=== PATIENT | female | born 1940 | race Caucasian/White ===

== ENCOUNTER → 2021-01-05 10:19 | Outpatient (CLI) | payer MEDICARE, BC, SELFPAY ==
[2021-01-05 10:31] LABS: Microscopic, Urine URINE MICROSCOPIC (MICROSCOPIC)
[2021-01-05 11:08] LABS: Appearance,Urine SL CLOUDY (Clear); Bilirubin,Urine Negative (Negative); Blood, Urine Negative (Negative); Color,Urine YELLOW (Yellow); Glucose,Urine (UA) Negative (Negative); Ketones,Urine Negative (Negative); Leukocyte Esterase,Urine 1+ (Negative); Nitrate,Urine POSITIVE (Negative); PH,Urine 5.5 (5.0-8.5); Protein,Urine Negative (Negative); Specific Gravity, Urine >= 1.030 (1.005-1.030); Urobilinogen,Urine 0.2 EU/dl (0.2)
[2021-01-05 11:22] LABS: WBC,Urine 50-100 #/hpf (0-3)
[2021-01-05 11:23] LABS: Bacteria,Urine 4+ /lpf
== END ==
PROVIDERS: PCP Family Medicine; Visit Provider Family Medicine
DX: R30.0 Dysuria (principal)
CPT/HCPCS: 81001; 87086; 87088; 87186

== ENCOUNTER 2021-01-30 20:24 | Emergency (ER) | payer MEDICARE, BC, SELFPAY ==
[2021-01-30 20:25] VITALS: BP 165/69; PULSE 63; RESP 18; O2SAT 92; BMI 24.7
--- NOTE | 2021-01-30 20:40 | HMH.EDGENADL ---
ED Disposition Clinical Impression: Peptic ulcer disease Headache Qualifiers: Headache type: unspecified Headache chronicity pattern: acute headache Intractability: not intractable Qualified Code(s): R51.9 - Headache, unspecified Disposition: Home, Self-Care Condition on Discharge: Good Instructions: Nausea and Vomiting-Adult Additional Instructions: Zofran as prescribed for nausea and vomiting. Take omeprazole as prescribed as this may help with pain associated with your peptic ulcer disease. Zofran and Omeprazole sent electronically to [email or web address]. Follow a bland diet. Avoid any NSAIDs and EtOH. A good decongestant you to try to be Coricidin which is [id number]. You can also try nasal Flonase over the next several days which may help. Drink plenty of clear fluids. Please follow-up with your doctor within several days for recheck. If any recurrent headache, epigastric pain, intractable nausea/vomiting, fever/chills, generalized malaise, change in quality/character of pain, or other new issues please report back to our emergency department immediately. Prescriptions: Omeprazole [Omeprazole 40mg Capsule] 40 mg PO AC #14 cap Prescription Printed Omeprazole [Omeprazole 40mg Capsule] 40 mg PO AC #14 cap Transmission Status: Pending to [id number] Ondansetron [Zofran 4mg ODT] 4 mg PO BIDP PRN #12 tab PRN Reason: Vomiting Transmission Status: Pending to [id number] Referrals: Zhen Urbina MD [Primary Care Provider] - - Critical Care Critical Care Time: No Attestation: On 01/30/21, the high probability of a clinically significant, sudden or life threatening deterioration of the following system(s) required my full and direct attention, intervention and personal management. The time I documented below is in addition to time spent performing reported procedures but includes the following listed in this critical care notation. Medical Decision Making - Medical Records Medical records reviewed: Yes: I reviewed the patient's medical records. - [place] Inquiry Pt receiving controlled substance: No Vital Signs: 01/30/21 20:25 Pulse Rate [Left Radial] 63 Respiratory Rate 18 Blood Pressure [Right Arm] 165/69 H Blood Pressure Mean [Right Arm] 101 Blood Pressure Source [Right Arm] Automatic Cuff Blood Pressure Position [Right Arm] Sitting 02 Sat by Pulse Oximetry 92 L Oxygen Delivery Method Room Air - Lab Data Lab Results 01/30/21 20:58: WBC 4.3 L, RBC 4.70, Hgb 14.2, Hct 42.6, MCV 90.6, MCH 30.1, MCHC 33.2, RDW 14.1, Plt Count 239, MPV 7.7, Neut % (Auto) 75.3, Lymph % (Auto) 19.5, [place] % (Auto) 4.2, Eos % (Auto) 0.8, Baso % (Auto) 0.1, Neut # (Auto) 3.2, Lymph # (Auto) 0.8, [place] # (Auto) 0.2, Eos # (Auto) 0.0, Baso # (Auto) 0.0 01/30/21 20:58: Sodium 138, Potassium 4.0, Chloride 107, Carbon Dioxide 23, Anion Gap 12.0, BUN 26 H, Creatinine 0.70, Estimated Creat Clear 43, Estimated GFR 81, Est GFR ( Amer) 97, Glucose 118 H, Calcium 8.9, Total Bilirubin 0.5, AST 44 H, ALT 26, Alkaline Phosphatase 105, Total Protein 7.9, Albumin 4.5, Globulin 3.4 H, Albumin/Globulin Ratio 1.3, Amylase 74, Lipase 21 L 01/30/21 20:58: Troponin I < 0.01 01/30/21 22:14: Lactate 1.7 Result diagrams: 01/30/21 20:58 01/30/21 20:58 Orders (Tests/Meds): ED MEDICATIONS Generic Name Dose Route Start Last Admin Trade Name Alexandra PRN Reason Stop Dose Admin Sodium Chloride 1,000 mls @ 999 mls/hr 01/30/21 21:15 01/30/21 21:08 Sod Chlor 0.9% 1000ml Bag IV 01/30/21 22:15 999 mls/hr .Q1H1M PALOMO Administration Lactated Ringer's 500 mls @ 999 mls/hr 01/30/21 21:15 01/30/21 21:17 Lactated Ringer's 1000 Ml Bag IV 01/30/21 21:45 999 mls/hr .Q31M PALOMO Administration Sodium Chloride 10 ml 01/31/21 00:21 01/31/21 00:24 Sodium Chloride 0.9% 10ml Vial IV 03/02/21 00:20 10 ml NEEDED PRN Administration dilute protonix Discontinued Medications Generic Name Dose
[2021-01-30 21:00] VITALS: BP 158/59; PULSE 54; O2SAT 99
--- NOTE | 2021-01-30 21:09 | CT_ITS ---
PROCEDURE: CT HEAD/BRAIN WO CON CLINICAL INDICATION: Headache COMPARISON: No exams were available for comparison TECHNIQUE: Axial images obtained. All CT scans at the facility use one or more dose reduction, viz: automated exposure control, ma/kV adjustment per patient size (including targeted exams where dose is matched to indication, i.e. head), or iterative reconstruction technique. FINDINGS: Motion artifact obscures fine detail. The patient refused to repeat the exam. No midline shift or obvious intracranial hemorrhage evident. There is generalized atrophy with hypoattenuation of the periventricular white matter consistent with microangiopathic changes.. No mastoid effusion or sinus air-fluid level IMPRESSION: Limited exam secondary to motion No obvious acute finding Dictated by: James Patel MD 01/31/2021 08:41 James Patel MD in [facility] 01/31/2021 08:41
[2021-01-30 21:16] LABS: Basophils % 0.1 % (0.1-2.0); Eosinophils % 0.8 % (0.1-12.0); Hematocrit 42.6 % (37.0-47.0); Hemoglobin 14.2 g/dL (12.2-16.2); Lymphocytes # 0.8 K/mm3 (0.7-4.5); Lymphocytes % 19.5 % (10-50); Mean Corpuscular HGB Conc 33.2 g/dL (31.8-35.4); Mean Corpuscular Hemoglobin 30.1 pg (27.0-31.2); Mean Corpuscular Volume 90.6 fl (81-99); Mean Platelet Volume 7.7 fl (7.4-10.4); Monocytes # 0.2 K/mm3 (0.1-1.0); Monocytes % 4.2 % (1.7-9.3); Neutrophils # 3.2 K/mm3 (1.8-7.8); Neutrophils % 75.3 % (37.0-80.0); Platelet Count 239 K/mm3 (142-424); Red Cell Distribution Width 14.1 % (11.5-17.5); White Blood Count 4.3 K/mm3 (4.8-10.8)
[2021-01-30 21:18] LABS: Chloride 107 mmol/L (98-107); Sodium 138 mmol/L (136-145)
[2021-01-30 21:21] LABS: Alanine Aminotransferase 26 U/L (12-78); Alkaline Phosphatase 105 U/L (38-126); Amylase 74 U/L (30-110); Aspartate Amino Transferase 44 U/L (14-36); Bilirubin,Total 0.5 mg/dl (0.2-1.3); Blood Urea Nitrogen 26 mg/dl (7-17); Calcium 8.9 mg/dl (8.4-10.2); Carbon Dioxide 23 mmol/L (22.0-30.0); Creatinine Clearance Estimated 43 mL/min (50-200); Estimated Glomerular Filt Rate 81 ml/min (>60); GFR (African American) 97 ML/MIN (>60); Glucose 118 mg/dl (74-100); Lipase 21 U/L (23-300)
[2021-01-30 21:22] LABS: Albumin Level 4.5 g/dl (3.5-5.0); Albumin/Globulin Ratio 1.3 (1.1-1.8); Globulin 3.4 g/dL (1.3-3.2); Total Protein,Serum 7.9 g/dl (6.3-8.2)
[2021-01-30 21:30] VITALS: BP 149/59; PULSE 62; O2SAT 96
[2021-01-30 22:00] VITALS: BP 145/77; PULSE 74; O2SAT 96
--- NOTE | 2021-01-30 22:04 | ECG_ITS ---
APPROVED REPORT Exam: Resting ECG HR:69 bpm ECG Measurements Heart Rate 69 AXES WV 128 P 62 QRSd 74 QRS 70 QT 426 T 49 QTc 456 Conclusion Normal sinus rhythm Short WV with pre-excitation pattern - consider WPW variant Abnormal ECG Electronically signed by : Stanley Ibarra, 01/31/2021 08:40:11
[2021-01-30 22:29] LABS: Lactic Acid 1.7 mmol/L (0.7-2.1)
[2021-01-30 22:30] VITALS: BP 137/62; PULSE 80; RESP 18; O2SAT 94
--- NOTE | 2021-01-30 23:02 | PC.NURSE ---
RT reports pt is unable to tolerate laying for CT. Pt is now refusing to complete imaging stating she cant sit still d/t pain. aware.
[2021-01-30 23:30] VITALS: BP 141/75; PULSE 67; O2SAT 94
[2021-01-31] VITALS: BP 149/69; PULSE 66; O2SAT 96
[2021-01-31 00:02] LABS: Troponin I < 0.01 ng/ml (0.00-0.034)
[2021-01-31 00:30] VITALS: BP 143/66; PULSE 63; O2SAT 97
[2021-01-31 01:00] VITALS: BP 139/54; PULSE 63; O2SAT 96
[2021-01-31 01:51] VITALS: BP 137/57; PULSE 96; RESP 18; TEMP 36.6; O2SAT 96
== END 2021-01-31 01:54 | disposition home or self-care (01) ==
PROVIDERS: Emergency Provider Emergency Medicine; PCP Family Medicine
DX: K27.9 Peptic ulcer, site unspecified, unspecified as acute or chronic, without hemorrhage or perforation (principal); R51.9 Headache, unspecified; E78.5 Hyperlipidemia, unspecified; Z79.899 Other long term (current) drug therapy
CPT/HCPCS: 70450; 80053; 82150; 83605; 83690; 84484; 85025; 93005; 96365; 96375; 96376; 99283; J2405; U0003

== ENCOUNTER 2023-05-06 21:21 | Inpatient (IN) | payer MEDICARE, BC, SELFPAY ==
[2023-05-06] VITALS (7 sets, daily range): BP systolic 148–161; BP diastolic 57–66; PULSE 56–72; RESP 14; TEMP 36.8; O2SAT 90–95; BMI 26.5
--- NOTE | 2023-05-06 21:34 | XR_ITS ---
PROCEDURE INFORMATION: Exam: XR Chest Exam date and time: 05/06/2023 10:39 PM Age: 82 years old Clinical indication: Other: Epigastric pain TECHNIQUE: Imaging protocol: Radiologic exam of the chest. Views: 1 view. COMPARISON: CT ABDOMEN PELVIS W CON 06/05/2023 22:36 FINDINGS: Lungs: Right hemidiaphragm elevation with right lower lung atelectasis. Bilateral apical scarring. The suggestion of the left lung base opacity has no correlate on CT images and likely represents a overlapping structures. Pleural spaces: Unremarkable. No pleural effusion. No pneumothorax. Heart/Mediastinum: Unremarkable. No cardiomegaly. Vasculature: Vascular calcifications. Bones/joints: Unremarkable. IMPRESSION: No acute findings.
--- NOTE | 2023-05-06 21:34 | CT_ITS ---
PROCEDURE INFORMATION: Exam: CT Abdomen And Pelvis With Contrast Exam date and time: 05/06/2023 10:36 PM Age: 82 years old Clinical indication: Abdominal pain; Epigastric TECHNIQUE: Imaging protocol: Computed tomography of the abdomen and pelvis with contrast. Radiation optimization: All CT scans at this facility use at least one of these dose optimization techniques: automated exposure control; mA and/or kV adjustment per patient size (includes targeted exams where dose is matched to clinical indication); or iterative reconstruction. Contrast material: ISOVUE; Contrast volume: 75 ml; Contrast route: IV; REPORTING DATA: Count of CT and Cardiac NM exams in prior 12 months: This patient has received 0 known CTs and 0 known cardiac nuclear medicine studies in the 12 months prior to the current study. COMPARISON: No relevant prior studies available. FINDINGS: Lungs: Right hemidiaphragm elevation with right lower lung atelectasis. Mild scarring and atelectasis in the lower lungs. Diaphragm: Small hiatal hernia. Liver: Possible hepatic steatosis. Gallbladder and bile ducts: Gallbladder is absent. Post cholecystectomy ectasia. Pancreas: Normal. No ductal dilation. Spleen: Normal. No splenomegaly. Adrenal glands: Normal. No mass. Kidneys and ureters: Normal. No hydronephrosis. Stomach and bowel: Small bowel wall thickening. Appendix: No evidence of appendicitis. Intraperitoneal space: Unremarkable. No free air. No significant fluid collection. Vasculature: The arteries demonstrate moderate atherosclerotic disease. Lymph nodes: Unremarkable. No enlarged lymph nodes. Urinary bladder: Unremarkable as visualized. Reproductive: Unremarkable as visualized. Bones/joints: Unremarkable. No acute fracture. Soft tissues: Tiny fat containing umbilical hernia. IMPRESSION: Small bowel wall thickening. Please correlate for evidence of enteritis.
--- NOTE | 2023-05-06 21:36 | HMH.EDABDPAI ---
Discharge Plan Disposition Chief Complaint: Abdominal Pain Prescriptions Prescriptions: No Action ondansetron 4 MG tablet,disintegrating 4 mg PO BIDP PRN (Reason: Vomiting) Qty: 12 0RF omeprazole 40 MG capsule,delayed release(DR/EC) 40 mg PO AC Qty: 14 0RF Rx Instructions: Take 1 tablet daily in the mornings omeprazole 40 MG capsule,delayed release(DR/EC) 40 mg PO AC Qty: 14 0RF Rx Instructions: 1 tablet each morning Referrals Follow up/Referrals: Zhen Urbina MD [Primary Care Provider] - See instructions Clinical Impressions Clinical Impression: Enteritis, Aspiration pneumonia of right lower lobe, Hypoxemia Instructions Patient Instructions: DI for Acute Abdominal Pain Discharge ED Provider: Marilin Choudhury Abdominal Pain HPI General Chief Complaint: Abdominal Pain Stated Complaint: nausea, trouble eating, vomiting Time Seen by Provider: 05/06/23 21:26 Mode of Arrival: Ambulatory Source of Information: Relative (Son) History of Present Illness HPI narrative: Patient is a 84-year-old female who is here secondary to severe diffuse abdominal pain. Patient stated she been having abdominal pain for 3 days since Tuesday. She is having intractable nausea vomiting which has been yellow-green. She is also had diarrhea since Tuesday. She has had cold fevers and chills. Patient has no chest pain. Patient's been having watery diarrhea. There is no blood in the emesis there is no blood in the diarrhea. She has not been on recent antibiotic. Patient's son said that she gets constipated and does take MiraLAX every other day. They do not know if she has a bowel obstruction or if she is got an infection in her colon so her son brought her in because she is not even able to keep her ice chips down she is not taking her oral medications either because she is vomiting complaint: abdominal pain Onset (ago): day(s) (3) Consistency: constant Location: diffuse Severity: moderate Severity scale (1-10): 8 Quality: cramping Radiation: none Migration to: no migration Relieving factors: nothing Exacerbating factors: nothing Associated symptoms: nausea, vomiting, diarrhea and chills Related Data Previous Rx's Medication Instructions Recorded omeprazole 40 mg capsule,delayed 40 mg PO AC #14 caps 01/31/21 release omeprazole 40 mg capsule,delayed 40 mg PO AC #14 caps 01/31/21 release ondansetron 4 mg disintegrating 4 mg PO BIDP PRN Vomiting #12 tabs 01/31/21 tablet Allergies Allergy/AdvReac Type Severity Reaction Status Date / Time No Known Allergies Allergy Verified 05/06/23 21:44 [facility] Disclaimer: The information contained in this section may have been updated after the patient was seen, as this information can be updated by other users. Surgical History History of appendectomy History of cholecystectomy History of esophagogastroduodenoscopy (EGD) Social History Smoking Status: Never smoker alcohol intake: never current occupational status: retired Travel in the last 8 weeks: None ROS Obtained: Yes All systems reviewed & no additional complaints except as documented Gastrointestinal Gastrointestingal: Reports abdominal pain, diarrhea, nausea and vomiting Physical Exam General General appearance: alert and in distress Head Head exam: atraumatic, normocephalic and normal inspection Eye Eye exam: Present normal appearance and EOMI; Absent scleral icterus or conjunctival redness ENT ENT exam: Present normal exam, normal oropharynx and mucous membranes dry Neck Neck exam: Present normal inspection, full ROM and trachea midline Chest Chest inspection: Present normal inspection and symmetric chest wall rise Respiratory Respiratory exam: Present normal lung sounds bilaterally Cardiovascular Cardiovascular exam: Present normal rhythm, normal h
[2023-05-06 21:53] LABS: Basophils % 0.3 % (0.1-2.0); Eosinophils % 0.3 % (0.1-12.0); Hematocrit 45.7 % (37.0-47.0); Hemoglobin 14.5 g/dL (12.2-16.2); Lymphocytes # 1.1 K/mm3 (0.7-4.5); Lymphocytes % 16.4 % (10-50); Mean Corpuscular HGB Conc 31.9 g/dL (31.8-35.4); Mean Corpuscular Hemoglobin 29.3 pg (27.0-31.2); Mean Platelet Volume 7.8 fl (7.4-10.4); Monocytes # 0.2 K/mm3 (0.1-1.0); Monocytes % 3.4 % (1.7-9.3); Neutrophils # 5.1 K/mm3 (1.8-7.8); Neutrophils % 79.6 % (37.0-80.0); Platelet Count 249 K/mm3 (142-424); Red Blood Count 4.96 M/mm3 (4.20-5.40); Red Cell Distribution Width 13.6 % (11.5-17.5); White Blood Count 6.4 K/mm3 (4.8-10.8)
[2023-05-06 21:57] LABS: Activated Partial Thrombo Time 25.6 seconds (22.8-30.6); INR 0.95 (0.9-1.1); Prothrombin Time 10.3 seconds (10.1-12.5)
[2023-05-06 22:21] LABS: Alanine Aminotransferase 26 U/L (12-78); Albumin Level 4.4 g/dl (3.5-5.0); Albumin/Globulin Ratio 1.4 (1.1-1.8); Alkaline Phosphatase 97 U/L (38-126); Anion Gap 10.8 mEq/L (5-15); Aspartate Amino Transferase 36 U/L (14-36); Bilirubin,Total 0.6 mg/dl (0.2-1.3); Blood Urea Nitrogen 18 mg/dl (7-17); Calcium 9.3 mg/dl (8.4-10.2); Carbon Dioxide 25 mmol/L (22.0-30.0); Chloride 108 mmol/L (98-107); Creatinine Clearance Estimated 45 mL/min (50-200); Estimated Glomerular Filt Rate 69 ml/min (>60); GFR (African American) 83 ML/MIN (>60); Globulin 3.2 g/dL (1.3-3.2); Glucose 145 mg/dl (74-100); Lipase 54 U/L (23-300); Potassium 3.8 mmoL/L (3.5-5.1); Sodium 140 mmol/L (136-145); Total Protein,Serum 7.6 g/dl (6.3-8.2)
--- NOTE | 2023-05-06 22:33 | PC.NURSE ---
PT GONE TO CT VIA STRETCHER
[2023-05-06 23:52] LABS: ABG Base Excess -4.4 mmol/L (-2.4-2.3); ABG HCO3 21.5 mmhg (22.0-26.0); ABG Oxygen Saturation 90 % (90-100); ABG PCO2 41.7 mmhg (35.0-45.0); ABG PH 7.33 mmol/L (7.35-7.45); ABG PO2 62.7 mmhg (80-100); ABG TCO2 22.8 mmhg (23-27)
[2023-05-06 23:53] LABS: Allen's Test Acceptable; Oxygen 21 %; Source Right Radial
[2023-05-07] VITALS (16 sets, daily range): BP systolic 114–158; BP diastolic 54–76; PULSE 50–80; RESP 16–19; TEMP 36.4–36.8; O2SAT 2–96; BMI 26.3
[2023-05-07 00:36] LABS: Coronavirus 19, PCR Not Detected (NotDetected); Influenza A, PCR Not Detected (NotDetected); Influenza B, PCR Not Detected (NotDetected)
--- NOTE | 2023-05-07 01:09 | PC.NURSE ---
REPORT GIVEN TO BOBY GAYTAN
--- NOTE | 2023-05-07 08:43 | PC.NURSE ---
pt with nausea and mild emesis, informed MD Urbina at bedside, MD to order zofran and put in pt's home meds
--- NOTE | 2023-05-07 08:44 | EXP.HP ---
History of Present Illness *Admission Date: 05/06/23 *Reason for visit:: abdominal pain *History of present illness: The patient is an 82 year old female with a 3 day history of diffuse abdominal pain associated with nausea, vomiting and diarrhea. Emesis has consisted of yellow liquid, no blood. Bowel movements have been brown and watery, no blood. She has had some headache as well. She states she has no sick contacts and did not eat any food out of her usual routine. She has been able to eat anything the past 2 days. Her son brought her to the ER for an evaluation last night. [facility] Disclaimer: The information contained in this section may have been updated after the patient was seen, as this information can be updated by other users. Medical History (Updated 05/07/23 @ 08:52 by Zhen Urbina MD) Allergic rhinitis Anxiety Depression Hyperlipidemia Irritable bowel syndrome with constipation Migraine headache Polyneuropathy Vertigo Vitamin D deficiency Surgical History (Updated 05/07/23 @ 08:50 by Zhen Urbina MD) History of appendectomy History of cholecystectomy History of esophagogastroduodenoscopy (EGD) History of tonsillectomy Family History (Updated 05/07/23 @ 08:51 by Zhen Urbina MD) Cancer Mother Social History (Updated 05/07/23 @ 01:37 by Samia Marquez RN) Smoking Status: Never smoker alcohol intake: never current occupational status: retired Travel in the last 8 weeks: None Review of Systems Constitutional Constitutional: Denies chills and Denies fever(s) Eyes Eyes: Denies blurry vision ENT Ears, Nose, Mouth, and Throat: Denies epistaxis *Cardiovascular Cardiovascular: Denies chest pain *Respiratory Respiratory: Denies cough *Gastrointestinal Gastrointestinal: Reports as per HPI *Genitourinary Genitourinary: Denies dysuria *Musculoskeletal Musculoskeletal: Denies arthralgias Integumentary/Breasts Skin/Breast: Denies rash *Neurologic Neurologic: Denies tremor(s) Meds Home Medications and Allergies Home Medications Medication Instructions Recorded Confirmed Type ondansetron 4 mg disintegrating 4 mg PO BIDP PRN Vomiting #12 tabs 01/31/21 05/07/23 Rx tablet ascorbic acid (vitamin C) 1,000 mg 1,000 mg PO Q12H . 05/07/23 05/07/23 History tablet,extended release (Vitamin C ER) atorvastatin 20 mg tablet 20 mg PO DAILY Cholesterol 05/07/23 05/07/23 History calcium citrate 200 mg 2 tab PO DAILY . 05/07/23 05/07/23 History calcium-vitamin D3 3.125 mcg (125 unit) tablet cholecalciferol (vitamin D3) 50 50 mcg PO DAILY . 05/07/23 05/07/23 History mcg (2,000 unit) tablet (Vitamin D3) clonazepam 0.5 mg tablet 0.5 mg PO DAILY . 05/07/23 05/07/23 History diphenhydramine HCl 25 mg tablet 25 mg PO HS PRN . 05/07/23 05/07/23 History hydroxyzine HCl 25 mg tablet 25 mg PO BID Itching 05/07/23 05/07/23 History loratadine 10 mg tablet 10 mg PO DAILY alllergies 05/07/23 05/07/23 History magnesium 250 mg tablet 250 mg PO DAILY . 05/07/23 05/07/23 History montelukast 10 mg tablet 10 mg PO HS . 05/07/23 05/07/23 History (Singulair) olanzapine 10 mg tablet 10 mg PO HS Depression 05/07/23 05/07/23 History omeprazole 40 mg capsule,delayed 40 mg PO AC . 05/07/23 05/07/23 History release pregabalin 50 mg capsule (Lyrica) 150 mg PO BID nerves 05/07/23 05/07/23 History sertraline 100 mg tablet 100 mg PO DAILY Depression 05/07/23 05/07/23 History valerian root 500 mg capsule 500 mg PO HS PRN Sleep 05/07/23 05/07/23 History New Prescriptions to Start Prescriptions: Allergies Allergy/AdvReac Type Severity Reaction Status Date / Time No Known Allergies Allergy Verified 05/06/23 21:44 Exam Data for Last 24 hours Vital signs and Labs for Last 24 Hours: Temp Pulse Resp BP Pulse Ox O2 Del Method O2 Flow Rate 97.9 F 62 16 114/54 L 94 L Nasal Cannula 2.5 05/07/23 07:51 05/07/23 07:51 05/07/23 07:51 05/07/23 07:51 05/07/23 07:51
--- NOTE | 2023-05-07 11:42 | HMH.PHAINT1 ---
Pharmacy Intervention Comments: MEDICATION RECONCILIATION COMPLETE USING EXTERNAL PHARMACY FILL HISTORY.
[2023-05-07 18:01] LABS: Microscopic, Urine URINE MICROSCOPIC (MICROSCOPIC)
[2023-05-07 18:07] LABS: Appearance,Urine CLEAR (Clear); Bilirubin,Urine Negative (Negative); Blood, Urine 2+ (Negative); Color,Urine DK YELLOW (Yellow); Glucose,Urine (UA) Negative (Negative); Ketones,Urine Negative (Negative); Leukocyte Esterase,Urine TRACE (Negative); Nitrate,Urine POSITIVE (Negative); PH,Urine 5.5 (5.0-8.5); Protein,Urine TRACE (Negative); Specific Gravity, Urine >= 1.030 (1.005-1.030); Urobilinogen,Urine 0.2 EU/dl (0.2)
[2023-05-07 18:28] LABS: Bacteria,Urine 2+ /lpf; RBC,Urine Occasional #/hpf (0-3)
[2023-05-08] VITALS (9 sets, daily range): BP systolic 126–141; BP diastolic 58–64; PULSE 50–63; RESP 16–18; TEMP 36.4–36.9; O2SAT 2–100; BMI 27.6
--- NOTE | 2023-05-08 08:19 | PC.NURSE ---
pt seemed little more malaise today, asked pt how felt and pt stated have bad headache and have had headache for 3 days , this RN asked if tylenol is helping it and pt shook head no, when MD Urbina rounds this am will ask MD if there is anything else we could give her for the headache; this RN asked pt if felt worse than yesterday and pt shook head yes, this RN asked if there was anything could do to make her feel better and pt stated not that I know of , call light within reach
--- NOTE | 2023-05-08 09:13 | EXP.ACUTE.PN ---
Subjective *Date: 05/08/23 *Time: 09:13 Interval history: Patient reports diarrhea has resolved, she still has a little nausea. She has been able to take in a small amount of clear liquids. She states her headache is worse today. Medical Exam Vital signs and Labs for Last 24 Hours: Vital Signs Temp Pulse Pulse Resp BP Pulse Ox O2 Del Method 05/08/23 07:58 97.9 F 54 L 16 132/59 L 97 Room Air 05/08/23 08:30 Nasal Cannula 05/08/23 08:00 2 L Nasal Cannula 05/08/23 06:46 Nasal Cannula 05/08/23 04:52 Nasal Cannula 05/08/23 03:00 Nasal Cannula 05/08/23 04:00 98.0 F 54 L 18 126/58 L 96 Nasal Cannula 05/08/23 04:00 60 05/08/23 00:00 50 L 05/07/23 20:00 60 05/08/23 00:00 98.5 F 55 L 17 134/58 L 100 Nasal Cannula 05/08/23 00:25 Nasal Cannula 05/07/23 23:00 Nasal Cannula 05/07/23 21:00 Nasal Cannula 05/07/23 20:00 2 L Nasal Cannula 05/07/23 20:00 97.9 F 56 L 18 125/55 L 94 L Room Air 05/07/23 18:34 Room Air 05/07/23 17:00 Room Air 05/07/23 16:00 60 05/07/23 15:09 97.6 F 61 16 120/62 94 L Room Air 05/07/23 12:00 55 L 05/07/23 15:00 Room Air 05/07/23 13:00 Room Air 05/07/23 11:00 Room Air 05/07/23 11:22 97.6 F 53 L 16 120/59 L 92 L Room Air O2 Flow Rate 05/08/23 07:58 05/08/23 08:30 2 05/08/23 08:00 05/08/23 06:46 05/08/23 04:52 05/08/23 03:00 05/08/23 04:00 2.5 05/08/23 04:00 05/08/23 00:00 05/07/23 20:00 05/08/23 00:00 2.5 05/08/23 00:25 05/07/23 23:00 05/07/23 21:00 05/07/23 20:00 05/07/23 20:00 05/07/23 18:34 05/07/23 17:00 05/07/23 16:00 05/07/23 15:09 05/07/23 12:00 05/07/23 15:00 05/07/23 13:00 05/07/23 11:00 05/07/23 11:22 Intake and Output 05/07/23 05/08/23 05/08/23 23:59 07:59 15:59 Intake Total 60 / 2881 1621 / 1621 Output Total 0 / 0 Balance 60 / 2881 1621 / 1621 Intake: Intake, Oral Amount 60 / 120 60 / 60 Intake, Total IV Amount 1561 / 1561 Ceftriaxone Sodium 1 gm In 0.9 50 / 50 % Sodium Chloride 50 ml @ 100 mls/hr IV Q24H [facility] Rx#:[id number] D5W/0.45% NaCl w/20mEq KCL 1, 1511 / 1511 000 ml @ 100 mls/hr IV .Q10H [facility] Rx#:[id number] Output: Output, Urine Amount 0 / 0 Other: Number of Unmeasured Voids 1 Weight 149 lb 12.8 oz Patient Weight 05/08/23 23:59 Weight 149 lb 12.8 oz Laboratory Results - last 24 hr 05/07/23 17:51: Urine Color Dk yellow, Urine Appearance Clear, Urine pH 5.5, Ur Specific [place] >= 1.030, Urine Protein Trace, Urine Glucose (UA) Negative, Urine Ketones Negative, Urine Blood 2+, Urine Nitrate Positive, Urine Bilirubin Negative, Urine Urobilinogen 0.2, Ur Leukocyte Esterase Trace, Urine RBC Occasional, Urine WBC 3-5, Ur Squamous Epith Cells 3-5, Urine Bacteria 2+ I & O for Labs for Last 24 Hours: Intake & Output 05/05/23 05/06/23 05/07/23 05/08/23 23:59 23:59 23:59 23:59 Intake Total 1320 / 2881 1621 / 1621 Output Total 0 / 0 0 / 0 Balance 1320 / 2881 1621 / 1621 Weight 145 lb 143 lb 1.28 oz 149 lb 12.8 oz Constitutional: Present no acute distress Comment:: appears not to feel well Respiratory: Present normal respiratory effort Cardiac: Present Reg Rate and Rhythm GI: Present normal bowel sounds; Absent tenderness Extremities: Present normal inspection and full ROM Skin: Present intact; Absent erythema Neuro: Present Grossly Intact and moves all extremities Assessment and Plan *Assessment and plan (1) Enteritis: Status: Acute Category: Medical Code(s): K52.9 - Noninfective gastroenteritis and colitis, unspecified (2) Abdominal pain: Status: Acute Qualifiers: Abdominal location: periumbilical Qualified Code(s): R10.33 - Periumbilical pain Category: Medical Code(s): R10.9 - Unspecified abdominal kurtis
[2023-05-08 09:40] LABS: Basophils % 0.3 % (0.1-2.0); Eosinophils # 0.1 K/mm3 (0.0-0.4); Eosinophils % 1.8 % (0.1-12.0); Hematocrit 38.6 % (37.0-47.0); Hemoglobin 12.6 g/dL (12.2-16.2); Lymphocytes # 2.1 K/mm3 (0.7-4.5); Lymphocytes % 28.4 % (10-50); Mean Corpuscular HGB Conc 32.6 g/dL (31.8-35.4); Mean Corpuscular Hemoglobin 29.3 pg (27.0-31.2); Mean Corpuscular Volume 89.8 fl (81-99); Mean Platelet Volume 9.4 fl (7.4-10.4); Monocytes # 0.6 K/mm3 (0.1-1.0); Monocytes % 8.2 % (1.7-9.3); Neutrophils # 4.6 K/mm3 (1.8-7.8); Neutrophils % 61.4 % (37.0-80.0); Platelet Count 205 K/mm3 (142-424); White Blood Count 7.6 K/mm3 (4.8-10.8)
[2023-05-08 09:57] LABS: Anion Gap 9.5 mEq/L (5-15); Blood Urea Nitrogen 13 mg/dl (7-17); Calcium 7.9 mg/dl (8.4-10.2); Carbon Dioxide 20 mmol/L (22.0-30.0); Chloride 116 mmol/L (98-107); Creatinine Clearance Estimated 47 mL/min (50-200); Estimated Glomerular Filt Rate 96 ml/min (>60); GFR (African American) 116 ML/MIN (>60); Glucose 116 mg/dl (74-100); Sodium 140 mmol/L (136-145)
[2023-05-08 09:59] LABS: Potassium 5.5 mmoL/L (3.5-5.1)
--- NOTE | 2023-05-08 10:53 | PC.NURSE ---
pt wanted this RN to ask MD Urbina if he thought pt had sinus infection bc her ears and head were hurting so bad, stated that if pt did have sinus infection pt already on ceftriaxone and so if has sinus infection that antibiotic would take care of it, informed pt of what explained and pt verbalized understanding, also gave additional medication for headache per emar, call light within reach
--- NOTE | 2023-05-08 15:45 | PC.NURSE ---
RESPIRATORY CARE NOTE:PT ASLEEP AT THIS TIME. CUP LEFT AT BEDSIDE.
[2023-05-09] VITALS: BP 173/77; PULSE 58; PULSE 60; RESP 18; TEMP 36.5; O2SAT 96
--- NOTE | 2023-05-09 00:14 | PC.NURSE ---
THIS PT IS C/O AN INTENSE BULLARD AGAIN AND THIS RN GAVE PRN MEDS; PT GOT UP TO THE BR W/ SRNA AND C/O OF BULLARD POUNDING AND COVERING THE RIGHT SIDE OF HER FACE WITH HER HAND. THIS RN LOOKED THROUGH THIS PT'S NOTES AND LABS AGAIN AND NOTICED HER AM K+ WAS 5.5. PT HAS IVF W/ K+ RUNNING WHICH WERE STOPPED BY THIS RN AND A STAT BMP WAS ORDERED. WILL UPDATE MD WITH ANY CRITICAL RESULTS OR IF PT'S CONDITION WORSENS.
--- NOTE | 2023-05-09 01:29 | PC.NURSE ---
Addendum entered by Cat Monte RN 05/09/23 02:30: @0216 LAB COLLECTED BY TOW DRIVER D/T LAB UNABLE TO GET / HEMOLYZED Original Note: @0030 THIS RN CONTACTED LAB TO MAKE SURE THEY'RE AWARE OF STAT BMP @0110 THIS RN CONTACTED LAB TO ASK HOW MUCH LONGER FOR A STAT BMP RESULT; LAB STATED SHE'S SEEING IF THERE'S ENOUGH BLOOD IN THE TUBE TO BE ABLE TO RUN; THIS RN CONTINUES TO WAIT FOR STAT BMP LAB RESULTS.
[2023-05-09 02:25] LABS: Chloride 108 mmol/L (98-107)
[2023-05-09 02:26] LABS: Sodium 139 mmol/L (136-145)
[2023-05-09 02:28] LABS: Blood Urea Nitrogen 6 mg/dl (7-17); Creatinine Clearance Estimated 47 mL/min (50-200); Estimated Glomerular Filt Rate 96 ml/min (>60); GFR (African American) 116 ML/MIN (>60); Potassium 3.9 mmoL/L (3.5-5.1)
[2023-05-09 02:29] LABS: Anion Gap 4.9 mEq/L (5-15); Calcium 7.4 mg/dl (8.4-10.2); Carbon Dioxide 30 mmol/L (22.0-30.0); Glucose 72 mg/dl (74-100)
--- NOTE | 2023-05-09 03:17 | PC.NURSE ---
K+ WNL; IVF RESTARTED; PT IS NOT C/O BULLARD AT THIS TIME
[2023-05-09 04:00] VITALS: BP 145/72; PULSE 50; PULSE 60; RESP 17; TEMP 36.6; O2SAT 95; BMI 27.6
--- NOTE | 2023-05-09 07:00 | XR_ITS ---
FINAL REPORT CLINICAL HISTORY: Hypoxia COMPARISON: 05/06/2023 FINDINGS: PA and lateral views of the chest were obtained. The cardiac and mediastinal silhouettes are within normal limits. The lung volumes are low, and again there is elevation of the right hemidiaphragm. Small pleural effusions and bilateral lower lobe airspace disease are present, likely atelectasis. There is lucency beneath the right hemidiaphragm that may represent colon. However free air is difficult to exclude, would consider CT if indicated. No evidence of pneumothorax is seen. IMPRESSION: Small pleural effusions and bilateral lower lobe airspace disease, likely atelectasis. Lucency beneath the right hemidiaphragm may represent colon, however free air cannot be excluded. Consider CT if indicated. Reviewed, Interpreted and Dictated by Traci Vu MD Transcribed by Shayy Perkins Authenticated and . [facility]
[2023-05-09 08:00] VITALS: BP 138/65; PULSE 57; PULSE 60; RESP 16; TEMP 36.4; O2SAT 98
--- NOTE | 2023-05-09 08:51 | EXP.ACUTE.PN ---
Subjective *Date: 05/09/23 *Time: 09:12 Interval history: Patient states she does not feel well today. She is short of breath. She denies pain. She has nausea whenever she eats. Bowels and have moved since her diarrhea has ceased. She does deny chest pain. Chest x-ray completed this AM 05/09/2023 reveals the following: FINDINGS: PA and lateral views of the chest were obtained. The cardiac and mediastinal silhouettes are within normal limits. The lung volumes are low, and again there is elevation of the right hemidiaphragm. Small pleural effusions and bilateral lower lobe airspace disease are present, likely atelectasis. There is lucency beneath the right hemidiaphragm that may represent colon. However free air is difficult to exclude, would consider CT if indicated. No evidence of pneumothorax is seen. IMPRESSION: Small pleural effusions and bilateral lower lobe airspace disease, likely atelectasis. Lucency beneath the right hemidiaphragm may represent colon, however free air cannot be excluded. Consider CT if indicated. Medical Exam Vital signs and Labs for Last 24 Hours: Vital Signs Temp Pulse Pulse Resp BP Pulse Ox O2 Del Method 05/09/23 08:00 97.6 F 57 L 16 138/65 98 Nasal Cannula 05/09/23 07:00 Nasal Cannula 05/09/23 05:00 Nasal Cannula 05/09/23 04:00 97.8 F 60 17 145/72 H 95 Nasal Cannula 05/09/23 04:00 50 L 05/09/23 03:00 Nasal Cannula 05/09/23 00:00 97.7 F 58 L 18 173/77 H 96 Nasal Cannula 05/09/23 00:00 60 05/09/23 01:00 Nasal Cannula 05/08/23 23:00 Nasal Cannula 05/08/23 21:00 Nasal Cannula 05/08/23 20:00 Nasal Cannula 05/08/23 20:00 50 L 05/08/23 20:00 98.5 F 58 L 18 141/64 H 98 Nasal Cannula 05/08/23 18:36 Nasal Cannula 05/08/23 17:00 Nasal Cannula 05/08/23 15:00 Nasal Cannula 05/08/23 13:00 Nasal Cannula 05/08/23 16:00 50 L 05/08/23 15:29 97.5 F L 63 17 132/62 98 Nasal Cannula 05/08/23 12:00 55 L 05/08/23 11:00 Room Air 05/08/23 11:23 97.6 F 54 L 18 138/58 L 99 Room Air O2 Flow Rate 05/09/23 08:00 2 05/09/23 07:00 2 05/09/23 05:00 2 05/09/23 04:00 2 05/09/23 04:00 05/09/23 03:00 2 05/09/23 00:00 2 05/09/23 00:00 05/09/23 01:00 2 05/08/23 23:00 2 05/08/23 21:00 2 05/08/23 20:00 2 05/08/23 20:00 05/08/23 20:00 2 05/08/23 18:36 2 05/08/23 17:00 2 05/08/23 15:00 2 05/08/23 13:00 2 05/08/23 16:00 05/08/23 15:29 2 05/08/23 12:00 05/08/23 11:00 05/08/23 11:23 Intake and Output 05/08/23 05/09/23 05/09/23 19:59 03:59 11:59 Intake Total 210 / 210 2145 / 2355 240 / 2595 Output Total 0 / 0 0 / 0 0 / 0 Balance 210 / 210 2145 / 2355 240 / 2595 Intake: Intake, Oral Amount 210 / 210 240 / 450 Intake, Other Amount 2145 / 2145 Output: Output, Urine Amount 0 / 0 0 / 0 0 / 0 Other: Number of Unmeasured Voids 1 1 1 Weight 149 lb 12.795 oz Patient Weight 05/09/23 11:59 Weight 149 lb 12.795 oz Laboratory Results - last 24 hr 05/07/23 17:51: Urine Color Dk yellow, Urine Appearance Clear, Urine pH 5.5, Ur Specific [place] >= 1.030, Urine Protein Trace, Urine Glucose (UA) Negative, Urine Ketones Negative, Urine Blood 2+, Urine Nitrate Positive, Urine Bilirubin Negative, Urine Urobilinogen 0.2, Ur Leukocyte Esterase Trace, Urine RBC Occasional, Urine WBC 3-5, Ur Squamous Epith Cells 3-5, Urine Bacteria 2+ 05/08/23 09:30: WBC 7.6, RBC 4.30, Hgb 12.6, Hct 38.6, MCV 89.8, MCH 29.3, MCHC 32.6, RDW 14.0, Plt Count 205, MPV 9.4, Neut % (Auto) 61.4, Lymph % (Auto) 28.4, [place] % (Auto) 8.2, Eos % (Auto) 1.8, Baso % (Auto) 0.3, Neut # (Auto) 4.6, Lymph # (Auto) 2.1, [place] # (Auto) 0.6, Eos # (Auto) 0.1, Baso # (Auto) 0.0, Sodium 140, Potassium 5.5 H D, Chloride 116 H, Carbon Dioxide 20 L, Anion Gap 9.5, BUN 13 D, Creatinine 0.60 D, Estimated Creat Clear 47, Estimated GFR 96, Est GFR (
[2023-05-09 12:00] VITALS: BP 169/60; PULSE 50; PULSE 54; RESP 18; TEMP 36.5; O2SAT 96
[2023-05-09 16:00] VITALS: BP 156/74; PULSE 60; PULSE 70; RESP 18; TEMP 36.4; O2SAT 100
--- NOTE | 2023-05-09 18:56 | PC.NURSE ---
Patient complaining of headache, promethazine helped patient to be able to rest.
[2023-05-09 20:00] VITALS: BP 159/72; PULSE 60; PULSE 65; RESP 18; TEMP 36.2; O2SAT 96
[2023-05-10] VITALS (10 sets, daily range): BP systolic 142–165; BP diastolic 56–76; PULSE 55–80; RESP 15–19; TEMP 36.5–37; O2SAT 91–98; BMI 27.5; BMI 27.4
--- NOTE | 2023-05-10 04:06 | PC.NURSE ---
NO ACUTE CHANGES THIS SHIFT. PT HAS RESTED WELL. HAS C/O A HEADACHE X2 THIS SHIFT AND NAUSEA X1. TREATED PER DEC. VERY LITTLE PO INTAKE. VSS.
--- NOTE | 2023-05-10 08:30 | EXP.ACUTE.PN ---
Subjective *Date: 05/10/23 *Time: 08:55 Interval history: Patient states that she may feel little bit better. She continues with periodic nausea and has no appetite. Her bowels have not moved since diarrhea has ceased. She sit up in a chair for about 30 minutes yesterday. She denies chest pain and shortness of breath. Patient states that the present time she has no headache. Repeat chest x-ray yesterday revealed the following: IMPRESSION: Small pleural effusions and bilateral lower lobe airspace disease, likely atelectasis. Lucency beneath the right hemidiaphragm may represent colon, however free air cannot be excluded. Consider CT if indicated. Blood culture showed no growth. Urine culture reveals Klebsiella pneumoniae with colony count 30-40,000. It is sensitive to Rocephin which patient is on.. Medical Exam Vital signs and Labs for Last 24 Hours: Vital Signs Temp Pulse Pulse Resp BP Pulse Ox O2 Del Method 05/10/23 08:00 98.0 F 60 18 163/68 H 97 Nasal Cannula 05/10/23 07:00 Nasal Cannula 05/10/23 05:00 Nasal Cannula 05/10/23 04:00 97.7 F 65 18 148/72 H 98 Nasal Cannula 05/10/23 04:00 60 05/10/23 03:00 Nasal Cannula 05/10/23 00:00 60 05/10/23 01:00 Nasal Cannula 05/10/23 00:00 97.7 F 64 18 142/56 H 96 Nasal Cannula 05/09/23 23:00 Nasal Cannula 05/09/23 21:00 Nasal Cannula 05/09/23 20:00 Nasal Cannula 05/09/23 20:00 60 05/09/23 20:00 97.2 F L 65 18 159/72 H 96 Nasal Cannula 05/09/23 16:00 60 05/09/23 12:00 50 L 05/09/23 18:28 Nasal Cannula 05/09/23 16:44 Nasal Cannula 05/09/23 16:00 97.5 F L 70 18 156/74 H 100 Nasal Cannula 05/09/23 15:00 Room Air 05/09/23 13:00 Room Air 05/09/23 12:00 97.7 F 54 L 18 169/60 H 96 Nasal Cannula O2 Flow Rate 05/10/23 08:00 2.5 05/10/23 07:00 2 05/10/23 05:00 05/10/23 04:00 2.5 05/10/23 04:00 05/10/23 03:00 2 05/10/23 00:00 05/10/23 01:00 2 05/10/23 00:00 2.5 05/09/23 23:00 2 05/09/23 21:00 2 05/09/23 20:00 2 05/09/23 20:00 05/09/23 20:00 2.5 05/09/23 16:00 05/09/23 12:00 05/09/23 18:28 05/09/23 16:44 05/09/23 16:00 2.5 05/09/23 15:00 05/09/23 13:00 05/09/23 12:00 2 Intake and Output 05/09/23 05/10/23 05/10/23 19:59 03:59 11:59 Intake Total 1440 / 1440 600 / 2040 Output Total 150 / 150 700 / 850 Balance 1440 / 1440 -150 / 1290 -100 / 1190 Intake: Intake, Oral Amount 240 / 240 600 / 840 Intake, Total IV Amount 1200 / 1200 D5W/0.45% NaCl w/20mEq KCL 1, 1200 / 1200 000 ml @ 100 mls/hr IV .Q10H [facility] Rx#:[id number] Output: Output, Urine Amount 150 / 150 700 / 850 Other: Number of Unmeasured Voids 1 0 Weight 149 lb 7.574 oz Patient Weight 05/10/23 11:59 Weight 149 lb 7.574 oz I & O for Labs for Last 24 Hours: Intake & Output 05/07/23 05/08/23 05/09/23 05/10/23 11:59 11:59 11:59 11:59 Intake Total 1200 / 1200 1741 / 1741 2595 / 2595 2040 / 2040 Output Total 0 / 0 0 / 0 0 / 0 850 / 850 Balance 1200 / 1200 1741 / 1741 2595 / 2595 1190 / 1190 Weight 143 lb 1.28 oz 149 lb 12.8 oz 149 lb 12.795 oz 149 lb 7.574 oz Microbiology Reports for the Last 24 Hours: Microbiology 05/07/23 17:51 Urine,Clean Catch Urine Culture - Final Klebsiella pneumoniae ozaenae Constitutional: Present no acute distress Comment:: Appears comfortable lying in bed. Respiratory: Present crackles (Right basilar crackles) Cardiac: Present Regular Rate GI: Present soft and normal bowel sounds; Absent distention, tenderness or guarding Extremities: Absent tenderness, edema or calf tenderness Neuro: Present alert and awake Assessment and Plan *Assessment and plan (1) Enteritis: Status: Acute Category: Medical Code(s): K52.9 - Noninfective gastroenteritis and colitis, unspecified
--- NOTE | 2023-05-10 10:59 | PC.NURSE ---
Ciara's office called about pt. stating she hasn't had a BM since last Tuesday.
--- NOTE | 2023-05-10 11:11 | DIET.NUTRFU ---
Spoke with patient and her son. Pt's son states that she consistently takes miralax at home and feels that she will not have BM without it. Pt does not currently have a bowel regimen in place. Upon start of visit, pt complained of nausea and vertigo. Phenergan was just added. Adding boost clear to all trays to help meet energy and protein needs d/t low intakes.
--- NOTE | 2023-05-10 11:46 | HMH.PTEV ---
Physical Therapy Evaluation Rehab PT IP Evaluation Start: 05/10/23 08:40 Freq: ONCE Status: Active Protocol: Document 05/10/23 10:05 PHOREL (Rec: 05/10/23 11:45 PHORNE [id number]) Subjective/History History History 82 yowf adm to [facility] with PNA and enteritis. She reports she lives with her son and DIL, 1 step to enter the home, she uses a RW for ambulation and is independent at baseline. She reports she generally requires assist with all ADLs except dressing. Subjective Subjective Pt reports, I just feel bad all over right now. Rehab PT IP Eval Objective Appearance Patient Behavior Appropriate Patient Orientation Person,Place,Time Difficulty following instructions none Speech Pattern Clear Ambulation Patient Able to Ambulate Yes Ambulation Observation IP General Gait Pattern Observation Shuffling Step Ambulation Distance (feet) 3 Ambulation Assistive Device Rolling Walker Ambulation Ability Minimal x 1 (25% assist) Balance Ability to Arise Able, uses arms to help Sitting Balance Steady, safe Standing Balance Steady, wide stance Dynamic Sitting Balance Ability Good Dynamic Standing Balance Ability Good Transfers Bed Transfer Ability Minimal x 1 (25% assist) Chair Transfer Ability Minimal x 1 (25% assist) Sit to Stand Bed Transfer Ability Minimal x 1 (25% assist) Sit to Stand Chair Transfer Ability Minimal x 1 (25% assist) ROM All Extremities PT ROM Status WFL MMT All Extremities PT MMT WFL Rehab PT IP prob,goals,plan Problems Date of Evaluation: 05/10/23 PT IP Problems Bed Mobility,Transfers,Gait Rehab Potential Rehab Potential Good Plan PT Intervention Plan Bed Mobility,Transfers,Gait, Therapeutic Exercise PT Plan Frequency Daily Duration LOS Discharge Goals Bed Transfer Ability Contact Guard/Hand Hold Sit to Stand Chair Transfer Ability Contact Guard/Hand Hold Ambulation Assistive Device Rolling Walker Ambulation Distance (feet) 30 Discharge Plan PT Discharge Plan Pt is currently most appropriate for rehab placement for general strengthening at this time. She may may improve her mobility enough to
--- NOTE | 2023-05-10 13:29 | SW/DCPLANNER ---
Addendum entered by Noemí Barrera 05/11/23 08:59: Patient will discharge to [facility] today SNF level of care. Addendum entered by Noemí Capulin 05/11/23 07:38: [facility] is able to accept this patient once medically stable for discharge. Addendum entered by Noemí Capulin 05/10/23 14:58: [facility] will onsite visit w/ this patient and son. Original Note: PT/OT evaluated this patient and recommended SNF level of care at time of discharge. I spoke with patient and her son regarding discharge plans. I explained SNF vs home health. Patient is agreeable with SNF at this time and prefers [facility]. Patient information has been faxed to [facility]: I will continue to follow up. Discharge date is unknown at this time.
--- NOTE | 2023-05-10 15:40 | PC.NURSE ---
Pt's oxygen decreased to 1L and sats at 95%.
--- NOTE | 2023-05-10 18:12 | PC.NURSE ---
Pt. is now 92% on RA.
[2023-05-11] VITALS: BP 156/74; PULSE 60; PULSE 70; RESP 16; TEMP 37; O2SAT 92
[2023-05-11 04:00] VITALS: BP 156/71; PULSE 65; PULSE 70; RESP 14; TEMP 36.6; O2SAT 93; BMI 27.1
--- NOTE | 2023-05-11 05:23 | PC.NURSE ---
Patient has rested some this shift. Still complains of a headache, Dec. Dr. Ibarra notified and new medication added. No other issues stated by shravan
[2023-05-11 08:00] VITALS: BP 176/73; PULSE 68; PULSE 80; RESP 17; TEMP 36.8; O2SAT 93
[2023-05-11 08:19] VITALS: O2SAT 93
--- NOTE | 2023-05-11 08:22 | EXP.PHA.PN ---
Subjective *Date: 05/11/23 *Time: 08:22 Medical Exam Vital signs and Labs for Last 24 Hours: Vital Signs Temp Pulse Pulse Resp BP Pulse Ox O2 Del Method 05/11/23 08:00 98.2 F 68 17 176/73 H 93 L Room Air 05/11/23 04:00 70 05/11/23 04:00 97.9 F 65 14 156/71 H 93 L Room Air 05/11/23 01:00 Room Air 05/11/23 00:00 60 05/11/23 00:00 98.6 F 70 16 156/74 H 92 L Room Air 05/10/23 20:00 60 05/11/23 06:51 Room Air 05/11/23 05:00 Room Air 05/11/23 03:00 Room Air 05/10/23 23:00 Room Air 05/10/23 21:00 Room Air 05/10/23 20:00 Room Air 05/10/23 20:00 98.1 F 68 15 158/75 H 91 L Room Air 05/10/23 17:53 Room Air 05/10/23 16:00 65 05/10/23 12:00 55 L 05/10/23 16:07 Nasal Cannula 05/10/23 15:45 98.6 F 69 18 159/76 H 98 Room Air 05/10/23 15:00 Nasal Cannula 05/10/23 11:43 97.9 F 63 18 165/72 H 98 Room Air 05/10/23 11:04 95 Nasal Cannula 05/10/23 10:54 Nasal Cannula 05/10/23 09:00 Nasal Cannula 05/10/23 09:23 77 19 O2 Flow Rate 05/11/23 08:00 05/11/23 04:00 05/11/23 04:00 05/11/23 01:00 05/11/23 00:00 05/11/23 00:00 05/10/23 20:00 05/11/23 06:51 05/11/23 05:00 05/11/23 03:00 05/10/23 23:00 05/10/23 21:00 05/10/23 20:00 05/10/23 20:00 05/10/23 17:53 05/10/23 16:00 05/10/23 12:00 05/10/23 16:07 0.5 05/10/23 15:45 05/10/23 15:00 0.5 05/10/23 11:43 05/10/23 11:04 1 05/10/23 10:54 1 05/10/23 09:00 1.5 05/10/23 09:23 Intake and Output 05/10/23 05/11/23 05/11/23 23:59 07:59 15:59 Intake Total 240 / 240 Output Total 650 / 1500 0 / 0 Balance -650 / -900 0 / 240 240 / 240 Intake: Intake, Oral Amount 240 / 240 Output: Output, Urine Amount 650 / 1500 0 / 0 Other: Number of Unmeasured Voids 0 1 Weight 67.041 kg Patient Weight 05/11/23 23:59 Weight 67.041 kg I & O for Labs for Last 24 Hours: Intake & Output 05/08/23 05/09/23 05/10/23 05/11/23 23:59 23:59 23:59 23:59 Intake Total 1831 / 3976 3825 / 3825 600 / 600 240 / 240 Output Total 0 / 0 0 / 150 1500 / 1500 0 / 0 Balance 1831 / 3976 3825 / 3675 -900 / -900 240 / 240 Weight 67.948 kg 67.948 kg 67.7 kg 67.041 kg Microbiology Reports for the Last 24 Hours: Microbiology 05/07/23 17:51 Urine,Clean Catch Urine Culture - Final Klebsiella pneumoniae ozaenae The patient's infection will respond to the chosen ABx?: Yes (URINE CULTURE = KLEBSIELLA PNEUMONIAE, ROCEPHIN SUSCEPTIBLE, AFEBRILE.) Is the patient receiving the right drug, dose, and route?: Yes Could a more targeted ABx be ordered?: No
--- NOTE | 2023-05-11 08:40 | EXP.ACUTE.PN ---
Subjective *Date: 05/11/23 *Time: 08:49 Interval history: Patient states she is still not feeling well this morning. 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 She is nauseated and has tried drinking some juice. She denies any vomiting. She states her bowels are not moving. Medical Exam Vital signs and Labs for Last 24 Hours: Vital Signs Temp Pulse Pulse Resp BP Pulse Ox O2 Del Method 05/11/23 08:19 93 L Room Air 05/11/23 08:00 98.2 F 68 17 176/73 H 93 L Room Air 05/11/23 04:00 70 05/11/23 04:00 97.9 F 65 14 156/71 H 93 L Room Air 05/11/23 01:00 Room Air 05/11/23 00:00 60 05/11/23 00:00 98.6 F 70 16 156/74 H 92 L Room Air 05/10/23 20:00 60 05/11/23 06:51 Room Air 05/11/23 05:00 Room Air 05/11/23 03:00 Room Air 05/10/23 23:00 Room Air 05/10/23 21:00 Room Air 05/10/23 20:00 Room Air 05/10/23 20:00 98.1 F 68 15 158/75 H 91 L Room Air 05/10/23 17:53 Room Air 05/10/23 16:00 65 05/10/23 12:00 55 L 05/10/23 16:07 Nasal Cannula 05/10/23 15:45 98.6 F 69 18 159/76 H 98 Room Air 05/10/23 15:00 Nasal Cannula 05/10/23 11:43 97.9 F 63 18 165/72 H 98 Room Air 05/10/23 11:04 95 Nasal Cannula 05/10/23 10:54 Nasal Cannula 05/10/23 09:00 Nasal Cannula 05/10/23 09:23 77 19 O2 Flow Rate 05/11/23 08:19 05/11/23 08:00 05/11/23 04:00 05/11/23 04:00 05/11/23 01:00 05/11/23 00:00 05/11/23 00:00 05/10/23 20:00 05/11/23 06:51 05/11/23 05:00 05/11/23 03:00 05/10/23 23:00 05/10/23 21:00 05/10/23 20:00 05/10/23 20:00 05/10/23 17:53 05/10/23 16:00 05/10/23 12:00 05/10/23 16:07 0.5 05/10/23 15:45 05/10/23 15:00 0.5 05/10/23 11:43 05/10/23 11:04 1 05/10/23 10:54 1 05/10/23 09:00 1.5 05/10/23 09:23 Intake and Output 05/10/23 05/11/23 05/11/23 19:59 03:59 11:59 Intake Total 0 / 240 240 / 240 Output Total 150 / 650 500 / 650 Balance -150 / -410 -500 / -410 240 / -410 Intake: Intake, Oral Amount 0 / 240 240 / 240 Output: Output, Urine Amount 150 / 650 500 / 650 Other: Number of Unmeasured Voids 0 1 Weight 147 lb 12.8 oz Patient Weight 05/11/23 11:59 Weight 147 lb 12.8 oz I & O for Labs for Last 24 Hours: Intake & Output 05/08/23 05/09/23 05/10/23 05/11/23 11:59 11:59 11:59 11:59 Intake Total 1741 / 1741 2595 / 2595 2040 / 2040 240 / 240 Output Total 0 / 0 0 / 0 850 / 850 650 / 650 Balance 1741 / 1741 2595 / 2595 1190 / 1190 -410 / -410 Weight 149 lb 12.8 oz 149 lb 12.795 oz 149 lb 4.047 oz 147 lb 12.8 oz Microbiology Reports for the Last 24 Hours: Microbiology 05/07/23 17:51 Urine,Clean Catch Urine Culture - Final Klebsiella pneumoniae ozaenae Constitutional: Present no acute distress Comment:: Appears comfortable lying in bed. Respiratory: Present crackles (Right basilar crackles) Cardiac: Present Reg Rate and Rhythm GI: Present soft and normal bowel sounds; Absent distention, tenderness or guarding Extremities: Absent tenderness, edema or calf tenderness Neuro: Present alert and awake Assessment and Plan *Assessment and plan (1) Enteritis: Status: Acute Category: Medical Code(s): K52.9 - Noninfective gastroenteritis and colitis, unspecified (2) Abdominal pain: Status: Acute Qualifiers: Abdominal location: periumbilical Qualified Code(s): R10.33 - Periumbilical pain Category: Medical Code(s): R10.9 - Unspecified abdominal pain (3) Headache: Status: Acute Qualifiers: Headache chronicity pattern: acute headache Headache type: unspecified Intractability: not intractable Qualified Code(s): R51.9 - Headache, unspecified Category: Medical
--- NOTE | 2023-05-11 09:19 | EXP.DC.SUM ---
General Admission date:: 05/07/23 Discharge date: 05/11/23 HPI HPI HPI: The patient is an 82 year old female with a 3 day history of diffuse abdominal pain associated with nausea, vomiting and diarrhea. Emesis has consisted of yellow liquid, no blood. Bowel movements have been brown and watery, no blood. She has had some headache as well. She states she has no sick contacts and did not eat any food out of her usual routine. She has been able to eat anything the past 2 days. Her son brought her to the ER for an evaluation last night. Hospital Course Hospital Course Hospital Course: The patient was admitted and was initially thought to have pneumonia. She was slightly hypoxic in the emergency room and was started on IV antibiotics. By 05/08/2023 her diarrhea had resolved and she was able to take small amounts of clear liquids. She complained of a headache and some nausea. A repeat chest x-ray was ordered. She continued to have nausea whenever she ate. Her bowels did move normally. Her repeat chest x-ray showed small pleural effusions and bilateral lower lobe airspace disease. There was lucency beneath the right hemidiaphragm likely representing colon. Her blood cultures returned showing no growth. She was able to sit up in a chair. Her urine culture grew Klebsiella pneumoniae sensitive to Rocephin, therefore this was continued. A PT and OT consult were ordered. It was felt she would need some short-term rehab. By 05/11/2023, she still complained of a headache and some dizziness and she also remain nauseated. Meclizine was been added for vertigo symptoms. It was felt she was stable to discharge to [place] for short-term rehab. Exam Data for Last 24 hours Vital signs and Labs for Last 24 Hours: Temp Pulse Resp BP Pulse Ox O2 Del Method O2 Flow Rate 98.2 F 68 17 176/73 H 93 L Room Air 0.5 05/11/23 08:00 05/11/23 08:00 05/11/23 08:00 05/11/23 08:00 05/11/23 08:19 05/11/23 08:19 05/10/23 16:07 I & O for Last 24 hours: Intake & Output 05/08/23 05/09/23 05/10/23 05/11/23 11:59 11:59 11:59 11:59 Intake Total 1741 / 1741 2595 / 2595 2040 / 2040 240 / 240 Output Total 0 / 0 0 / 0 850 / 850 1050 / 1050 Balance 1741 / 1741 2595 / 2595 1190 / 1190 -810 / -810 Weight 149 lb 12.8 oz 149 lb 12.795 oz 149 lb 4.047 oz 147 lb 12.8 oz Microbiology Reports for the Last 24 Hours: Microbiology 05/07/23 17:51 Urine,Clean Catch Urine Culture - Final Klebsiella pneumoniae ozaenae Narrative: Constitutional Constitutional: no acute distress *Routine HEENT Exam Head: Present normocephalic Eye: Present EOMI and PERRL ENT: Present mucous membranes moist *Routine Neck Exam Neck: Present supple; Absent lymphadenopathy *Routine Respiratory Exam Respiratory: Present CTA bilaterally *Routine Cardiovascular Exam Cardiovascular: Present RRR *Routine Abdominal Exam Abdominal: Present soft, normoactive bowel sounds and tenderness (periumbilical); Absent distended, rebound or guarding *Routine Rectal Exam Rectal:: deferred *Routine Genitalia Exam Genitalia:: deferred *Routine Extremities Exam Extremities: Absent cyanosis, clubbing or edema *Routine Skin Exam Skin: Present warm; Absent rash *Routine Neurological Exam Neurological: Present alert and oriented X3 Results Data Completed and Pending Labs on day of discharge: Preliminary micro results at discharge 05/06/23 01:00 Blood Culture - Preliminary Blood NO GROWTH AFTER 48 HOURS 05/06/23 00:30 Blood Culture - Preliminary Blood NO GROWTH AFTER 48 HOURS DS: Diagnosis Discharge Diagnosis (1) Enteritis: Status: Acute Code(s): K52.9 - Noninfective gastroenteritis and colitis, unspecified (2) Abdominal pain: Status: Acute Code(s): R10.9 - Unspecified abdominal pain Qualifiers: Abdominal location: periumbilical Qualified Code(s): R10.33 - Periumbilical pain (3) Headach
--- NOTE | 2023-05-11 10:55 | PC.NURSE ---
Report called to Mo at [facility]. Mo Wills/[place].
--- NOTE | 2023-05-11 11:00 | PC.NURSE ---
IV removed from LAC. Pt. tolerated well. 2x[address] nurse educated family in removing coban after 20 minutes. Family v/u.
--- NOTE | 2023-05-11 11:19 | PC.NURSE ---
Pt. left unit via wheelchair to private vehicle. Pt. accompanied by staff x2.
== END 2023-05-11 11:19 | DRG 690 ==
LOC: ER 23:13 → 2ND 05-07 01:12
PROVIDERS: Admitting Provider Family Medicine; Emergency Provider Emergency Medicine; PCP Family Medicine; Visit Provider Family Medicine
DX: K52.9 Noninfective gastroenteritis and colitis, unspecified (principal); R10.33 Periumbilical pain; R51.9 Headache, unspecified; G62.9 Polyneuropathy, unspecified; F32.A Depression, unspecified; N30.00 Acute cystitis without hematuria
CPT/HCPCS: 36415; 71045; 71046; 74177; 80048; 80053; 81001; 82803; 83605; 83690; 85025; 85610; 85730; 87040; 87086; 87088; 87186; 87636; 97163; 97530; 99285; J0696; J2405; Q9967

== ENCOUNTER 2023-06-30 12:56 | Inpatient (IN) | payer MEDICARE, BC, SELFPAY ==
[2023-06-30] VITALS (12 sets, daily range): BP systolic 82–144; BP diastolic 41–75; PULSE 56–77; RESP 16–21; TEMP 36.3–36.6; O2SAT 88–98; BMI 26.6; BMI 27.1
--- NOTE | 2023-06-30 13:04 | ECG_ITS ---
APPROVED REPORT Exam: Resting ECG HR:80 bpm ECG Measurements Heart Rate 80 AXES HI 140 P 59 QRSd 90 QRS 68 QT 364 T 61 QTc 400 Conclusion SINUS RHYTHM POSSIBLE RIGHT VENTRICULAR CONDUCTION DELAY [RSR (QR) IN V1/V2] BORDERLINE ECG UNCONFIRMED REPORT Electronically signed by : Stanley Ibarra MD 06/30/2023 19:56:40
--- NOTE | 2023-06-30 13:20 | CT_ITS ---
FINAL REPORT CLINICAL HISTORY: somnolence, headache COMPARISON: 01/30/2021 FINDINGS: Axial images of the head were obtained without contrast. Coronal reformatted images were also obtained. This study was performed with techniques to keep radiation doses as low as reasonably achievable (ALARA). Individualized dose reduction techniques using automated exposure control or adjustment of mA and/or kV according to the patient''s size were employed. There is generalized age-appropriate atrophy. Periventricular low-attenuation areas are seen consistent with moderate chronic ischemic changes. There is no evidence of intracranial hemorrhage or mass. There is no evidence of acute infarct. There is no evidence of shift of the midline structures. No skull abnormality is seen on the bone window images. IMPRESSION: Atrophy and moderate periventricular chronic ischemic changes. No acute intracranial abnormality identified. Reviewed, Interpreted and Dictated by Jose Guadalupe Brewer III, MD Transcribed by Luci Ortega Authenticated and [facility]
--- NOTE | 2023-06-30 13:20 | XR_ITS ---
FINAL REPORT CLINICAL HISTORY: weakness FINDINGS: SINGLE VIEW CHEST The heart is normal in size. The mediastinum is unremarkable. There is a left base opacity, may represent atelectasis or pneumonia. There is no pneumothorax. IMPRESSION: Left base atelectasis or pneumonia. Reviewed, Interpreted and Dictated by Jose Guadalupe Brewer III, MD Transcribed by Luci Ortega Authenticated and [facility]
[2023-06-30 13:32] LABS: Basophils % 0.5 % (0.1-2.0); Eosinophils # 0.2 K/mm3 (0.0-0.4); Eosinophils % 2.4 % (0.1-12.0); Hematocrit 43.7 % (37.0-47.0); Hemoglobin 13.9 g/dL (12.2-16.2); Lymphocytes # 1.8 K/mm3 (0.7-4.5); Lymphocytes % 24.2 % (10-50); Mean Corpuscular HGB Conc 31.9 g/dL (31.8-35.4); Mean Corpuscular Hemoglobin 29.9 pg (27.0-31.2); Mean Corpuscular Volume 93.8 fl (81-99); Mean Platelet Volume 8.3 fl (7.4-10.4); Monocytes # 0.5 K/mm3 (0.1-1.0); Monocytes % 6.4 % (1.7-9.3); Neutrophils % 66.5 % (37.0-80.0); Platelet Count 279 K/mm3 (142-424); Red Blood Count 4.66 M/mm3 (4.20-5.40); Red Cell Distribution Width 13.9 % (11.5-17.5); White Blood Count 7.5 K/mm3 (4.8-10.8)
[2023-06-30 13:33] LABS: Chloride 111 mmol/L (98-107); Potassium 4.4 mmoL/L (3.5-5.1); Sodium 145 mmol/L (136-145)
[2023-06-30 13:35] LABS: Blood Urea Nitrogen 36 mg/dl (7-17); Estimated Glomerular Filt Rate 39 ml/min (>60); GFR (African American) 47 ML/MIN (>60)
[2023-06-30 13:36] LABS: Alanine Aminotransferase 22 U/L (12-78); Albumin Level 3.6 g/dl (3.5-5.0); Albumin/Globulin Ratio 1.1 (1.1-1.8); Alkaline Phosphatase 108 U/L (38-126); Anion Gap 12.4 mEq/L (5-15); Aspartate Amino Transferase 34 U/L (14-36); Bilirubin,Total 0.4 mg/dl (0.2-1.3); Calcium 9.2 mg/dl (8.4-10.2); Carbon Dioxide 26 mmol/L (22.0-30.0); Globulin 3.2 g/dL (1.3-3.2); Glucose 75 mg/dl (74-100); Total Protein,Serum 6.8 g/dl (6.3-8.2)
--- NOTE | 2023-06-30 13:37 | PC.NURSE ---
SANDRINE Pérez rounded on patient, no needs at this time. Call light within reach.
[2023-06-30 13:43] LABS: Magnesium 2.3 mg/dl (1.6-2.3)
[2023-06-30 13:53] LABS: T4 (Thyroxine) 8.2 ug/dl (5.53-11.0)
[2023-06-30 14:07] LABS: Thyroid Stimulating Hormone 0.14 uIU/mL (0.465-4.68)
--- NOTE | 2023-06-30 14:42 | PC.NURSE ---
nurse are aware of pt bp
--- NOTE | 2023-06-30 15:18 | HMH.EDGENADL ---
Discharge Plan Disposition Patient Disposition: Admitted Condition: Fair Clinical Impressions Clinical Impression: Somnolence, Acute hypotension, YESSICA (acute kidney injury), Acute respiratory acidosis Pneumonia Qualifiers: Pneumonia type: due to unspecified organism Laterality: left Lung location: lower lobe of lung Qualified Code(s): J18.9 - Pneumonia, unspecified organism Discharge ED Provider: Paulina Gage General Adult HPI General Chief complaint: Weakness Stated complaint: low blood pressure 69/44 Time Seen by Provider: 06/30/23 13:20 Mode of Arrival: Wheelchair Source of Information: Patient, Relative and Medical Record Limitations: No Limitations Description of Symptoms (Recalled from ER Triage Doc. by RN): Pt c/o feeling weak, tired, and inability to ambulate. Per son, she was d/c from [place] 1 wk ago for a 3 wk stay for rehab post hospitalization for Urosepsis. Pt reports she has been difficult to get up today and feels very sleepy. History of Present Illness HPI narrative: This patient is an 82-year-old female with a history of sepsis secondary to complicated urinary tract infection, previous admissions for weakness, recent rehab facility stay for weakness, and subsequent discharged home with home health and PT/OT presenting to the emergency department for evaluation with concern for fatigue, weakness, and inability to ambulate. Patient also complains of a headache. Patient denies any other concerns or complaints. She has had very poor oral intake. She does not drink very much at all. Her family states that she has been very lethargic today and difficult to wake up, and home health nurse noted low blood pressure at home, so she was brought in for evaluation. They note that she was supposed to stop taking blood pressure medication, as her blood pressure had been on the low side since discharge, however they did not realize that it was in her medication bubble packets prepackaged that she takes. He is not sure what she takes. No recent fevers, chills, cough, congestion, abdominal pain, nausea, vomiting, changes in bowel movements, changes in urine output, or other concerns noted recently. Related Data Home Medications Medication Instructions Recorded Confirmed ascorbic acid (vitamin C) 1,000 mg 1,000 mg PO BID Supplement 05/07/23 05/07/23 tablet,extended release (Vitamin C ER) atorvastatin 20 mg tablet 20 mg PO DAILY Cholesterol 05/07/23 05/07/23 cholecalciferol (vitamin D3) 50 50 mcg PO DAILY Supplement 05/07/23 05/07/23 mcg (2,000 unit) tablet (Vitamin D3) hydroxyzine HCl 25 mg tablet 25 mg PO BID Itching 05/07/23 05/07/23 loratadine 10 mg tablet 10 mg PO DAILY Allergy Symptoms 05/07/23 05/07/23 magnesium 250 mg tablet 250 mg PO DAILY Supplement 05/07/23 05/07/23 montelukast 10 mg tablet 10 mg PO HS Allergy Symptoms 05/07/23 05/07/23 (Singulair) olanzapine 15 mg tablet 15 mg PO HS mood/sleep 05/07/23 05/07/23 omeprazole 40 mg capsule,delayed 40 mg PO HS Acid Reflux 05/07/23 05/07/23 release sertraline 100 mg tablet 100 mg PO DAILY Depression 05/07/23 05/07/23 valerian root 500 mg capsule 500 mg PO HSP PRN Sleep 05/07/23 05/07/23 Previous Rx's Medication Instructions Recorded cefdinir 300 mg capsule 300 mg PO Q12H 7 days #14 caps 05/11/23 clonazepam 0.5 mg tablet 0.5 mg PO BIDP PRN Anxiety #60 tabs 05/11/23 irbesartan 150 mg tablet 150 mg PO DAILY #30 tabs 05/11/23 meclizine 25 mg tablet 25 mg PO Q8HP PRN dizziness #30 05/11/23 tabs ondansetron HCl 4 mg tablet 4 mg PO Q8H PRN nausea and 05/11/23 vomiting #30 tabs polyethylene glycol 3350 17 17 g PO DAILY #119 grams 05/11/23 gram/dose oral powder (Miralax) pregabalin 150 mg capsule 150 mg PO BID nerve pain #60 caps 05/11/23 promethazine 25 mg tablet 25 mg PO Q6H PRN nausea and 05/11/23 vomiting #30 tabs tramadol 50 mg tablet 50 mg PO Q4HP PRN Moderate To 05/11/23 Severe Pain (4-10) #60 tabs Allergies Allergy/AdvReac Type
--- NOTE | 2023-06-30 15:31 | ECG_ITS ---
APPROVED REPORT Exam: Resting ECG HR:62 bpm ECG Measurements Heart Rate 62 AXES NC 147 P 65 QRSd 93 QRS 77 QT 403 T 71 QTc 408 Conclusion SINUS RHYTHM POSSIBLE RIGHT VENTRICULAR CONDUCTION DELAY [RSR (QR) IN V1/V2] BORDERLINE ECG UNCONFIRMED REPORT Electronically signed by : Stanley Ibarra MD 06/30/2023 19:56:14
[2023-06-30 15:53] LABS: Troponin I < 0.01 ng/ml (0.00-0.034)
[2023-06-30 15:54] LABS: VBG Base Excess -1.6 mmol/L (-2.4-2.3); VBG HCO3 25.8 mmol/L (23-30); VBG PH 7.24 mmol/L (7.31-7.41); VBG PO2 52.7 mmol/L (28-40); VBG Total CO2 27.6 mmol/L (23-27)
[2023-06-30 15:58] LABS: VBG PCO2 61.2 mmol/L (35-51)
--- NOTE | 2023-06-30 15:58 | PC.NURSE ---
lab notified this nurse of pH 7.24, CO2 61.2.
--- NOTE | 2023-06-30 16:00 | PC.NURSE ---
Dr. Gage s/w Dr. Urbina
--- NOTE | 2023-06-30 16:04 | PC.NURSE ---
Attempted to care management for admission
--- NOTE | 2023-06-30 16:13 | PC.NURSE ---
Dr. Gage notified of VBG results.
--- NOTE | 2023-06-30 16:15 | PC.NURSE ---
Called Care Management no answer.
[2023-06-30 16:16] LABS: Lactic Acid 1.2 mmol/L (0.7-2.1)
--- NOTE | 2023-06-30 16:24 | PC.NURSE ---
Care management did not answer, called rooming house inspector for bed assignment
[2023-06-30 16:38] LABS: Coronavirus 19, PCR Not Detected (NotDetected); Influenza A, PCR Not Detected (NotDetected); Influenza B, PCR Not Detected (NotDetected)
--- NOTE | 2023-06-30 16:39 | EXP.HP ---
History of Present Illness *Admission Date: 06/30/23 *Reason for visit:: weakness *History of present illness: This patient is an 82-year-old female with a history of sepsis secondary to complicated urinary tract infection, previous admissions for weakness, recent rehab facility stay for weakness, and subsequent discharged home with home health and PT/OT presenting to the emergency department for evaluation with concern for fatigue, weakness, and inability to ambulate. Patient also complains of a headache. Patient denies any other concerns or complaints. She has had very poor oral intake. She does not drink very much at all. Her family states that she has been very lethargic today and difficult to wake up, and home health nurse noted low blood pressure at home, so she was brought in for evaluation. They note that she was supposed to stop taking blood pressure medication, as her blood pressure had been on the low side since discharge, however they did not realize that it was in her medication bubble packets prepackaged that she takes. He is not sure what she takes. No recent fevers, chills, cough, congestion, abdominal pain, nausea, vomiting, changes in bowel movements, changes in urine output, or other concerns noted recently. (above as per ER physician) Patient's son states she seemed to feel bad on Tuesday, but then was better yesterday. She was seen in the office by Dr. Urbina for a follow up from [facility] on 06/23/23 and her BP was low. He stopped her irbesartan but her son did not realize it was still in her prepackaged medication packs. Today she has been very lethargic and difficult to arouse. She does c/o body aches and chills. She was found to have pneumonia on a CXR and her BP was low upon presentation to the ER. It has now improved with fluids. [facility] Disclaimer: The information contained in this section may have been updated after the patient was seen, as this information can be updated by other users. Medical History (Updated 06/30/23 @ 19:41 by Zhen Urbina MD) Allergic rhinitis Anxiety Depression GERD (gastroesophageal reflux disease) Hyperlipidemia IBS (irritable bowel syndrome) Irritable bowel syndrome with constipation Migraine headache Polyneuropathy Vertigo Vitamin D deficiency Surgical History History of appendectomy History of cholecystectomy History of esophagogastroduodenoscopy (EGD) History of tonsillectomy Family History Cancer Mother Social History (Updated 06/30/23 @ 17:50 by Sharonda Hernandez, LUKAS) Smoking Status: Former smoker alcohol intake: never current occupational status: retired Travel in the last 8 weeks: None Review of Systems Constitutional Constitutional: Reports body ache(s), Reports chills, Reports fatigue, Denies fever(s), Reports headache(s), Reports poor appetite, Reports malaise and Reports weakness Eyes Eyes: Denies blurry vision and Denies diplopia ENT Ears, Nose, Mouth, and Throat: Reports headache(s), Denies nasal congestion, Denies sore throat and Reports vertigo *Cardiovascular Cardiovascular: Denies chest pain and Denies dyspnea *Respiratory Respiratory: Denies chest congestion, Reports cough and Denies dyspnea *Gastrointestinal Gastrointestinal: Denies abdominal pain, Denies loose stools, Reports nausea and Denies vomiting *Genitourinary Genitourinary: Denies difficulty voiding and Denies dysuria *Musculoskeletal Musculoskeletal: Reports myalgias *Neurologic Neurologic: Reports headache(s), Reports vertigo and Reports weakness Endocrine Endocrine: Reports fatigue Meds Home Medications and Allergies Home Medications Medication Instructions Recorded Confirmed Type ascorbic acid (vitamin C) 1,000 mg 1,000 mg PO BID Supplement 05/07/23 06/30/23 History tablet,extended release (Vitamin C ER) atorvastatin 20 mg t
--- NOTE | 2023-06-30 17:35 | PC.NURSE ---
@ 1276 called [facility] and s/w Liset for vancomycin consult.
--- NOTE | 2023-06-30 17:36 | PC.NURSE ---
coiled tubing supervisor escorting pt to 2nd floor
[2023-06-30 17:38] LABS: Microscopic, Urine URINE MICROSCOPIC (MICROSCOPIC)
[2023-06-30 17:42] LABS: Appearance,Urine CLEAR (Clear); Bilirubin,Urine Negative (Negative); Blood, Urine Negative (Negative); Color,Urine YELLOW (Yellow); Glucose,Urine (UA) Negative (Negative); Ketones,Urine Negative (Negative); Leukocyte Esterase,Urine Negative (Negative); Nitrate,Urine POSITIVE (Negative); PH,Urine 5.5 (5.0-8.5); Protein,Urine Negative (Negative); Urobilinogen,Urine 0.2 EU/dl (0.2)
[2023-06-30 18:07] LABS: Squamous Epithelial Cell,Urine Occasional #/hpf (0-5); WBC,Urine Occasional #/hpf (0-3)
[2023-06-30 19:28] LABS: Troponin I < 0.01 ng/ml (0.00-0.034)
[2023-07-01] VITALS (9 sets, daily range): BP systolic 104–119; BP diastolic 44–62; PULSE 65–73; RESP 14–22; TEMP 36.4–36.8; O2SAT 89–98; BMI 27.8
--- NOTE | 2023-07-01 05:05 | PC.NURSE ---
Pt A&Ox4. 3LNC. Pt receiving IV fluids. Complaints of headache through the night, prn medicine given.
[2023-07-01 06:43] LABS: Basophils % 0.3 % (0.1-2.0); Eosinophils # 0.2 K/mm3 (0.0-0.4); Lymphocytes # 2.3 K/mm3 (0.7-4.5); Mean Corpuscular Hemoglobin 30.3 pg (27.0-31.2); Monocytes # 0.4 K/mm3 (0.1-1.0); Red Cell Distribution Width 13.9 % (11.5-17.5)
[2023-07-01 06:45] LABS: Anion Gap 8.7 mEq/L (5-15); Blood Urea Nitrogen 25 mg/dl (7-17); Calcium 8.2 mg/dl (8.4-10.2); Carbon Dioxide 26 mmol/L (22.0-30.0); Chloride 112 mmol/L (98-107); Creatinine Clearance Estimated 51 mL/min (50-200); Estimated Glomerular Filt Rate 53 ml/min (>60); GFR (African American) 64 ML/MIN (>60); Glucose 66 mg/dl (74-100); Potassium 4.7 mmoL/L (3.5-5.1); Sodium 142 mmol/L (136-145)
[2023-07-01 06:49] LABS: Eosinophils % 3.6 % (0.1-12.0); Hematocrit 36.5 % (37.0-47.0); Hemoglobin 11.5 g/dL (12.2-16.2); Lymphocytes % 36.4 % (10-50); Mean Corpuscular HGB Conc 31.6 g/dL (31.8-35.4); Mean Platelet Volume 7.5 fl (7.4-10.4); Monocytes % 6.4 % (1.7-9.3); Neutrophils # 3.4 K/mm3 (1.8-7.8); Neutrophils % 53.4 % (37.0-80.0); Platelet Count 238 K/mm3 (142-424); White Blood Count 6.3 K/mm3 (4.8-10.8)
--- NOTE | 2023-07-01 07:28 | EXP.ACUTE.PN ---
Subjective *Date: 07/01/23 *Time: 07:28 Interval history: Patient feels better today, sitting up eating breakfast now. Medical Exam Vital signs and Labs for Last 24 Hours: Vital Signs Temp Pulse Pulse Resp BP BP Pulse Ox 07/01/23 04:00 97.6 F 71 17 113/62 96 07/01/23 00:00 97.6 F 69 17 118/60 98 07/01/23 05:00 07/01/23 03:00 07/01/23 01:00 06/30/23 23:00 06/30/23 21:00 06/30/23 20:00 97.5 F L 75 17 102/42 L 98 06/30/23 20:00 06/30/23 18:35 06/30/23 18:05 06/30/23 17:50 97.7 F 71 16 144/70 H 95 06/30/23 17:37 97.8 F 65 16 108/75 L 06/30/23 17:00 69 123/61 94 L 06/30/23 16:30 77 141/66 H 94 L 06/30/23 16:00 71 137/65 95 06/30/23 15:31 65 117/58 L 96 06/30/23 15:00 56 L 90/49 L 95 06/30/23 14:30 64 88/43 L 96 06/30/23 14:25 63 82/42 L 95 06/30/23 14:00 71 85/41 L 97 06/30/23 12:57 97.4 F L 76 21 105/57 L 88 L O2 Del Method O2 Flow Rate 07/01/23 04:00 07/01/23 00:00 07/01/23 05:00 Nasal Cannula 3 07/01/23 03:00 Nasal Cannula 3 07/01/23 01:00 Nasal Cannula 3 06/30/23 23:00 Nasal Cannula 3 06/30/23 21:00 Nasal Cannula 3 06/30/23 20:00 Room Air 06/30/23 20:00 Nasal Cannula 3 06/30/23 18:35 Nasal Cannula 3 06/30/23 18:05 Nasal Cannula 3 06/30/23 17:50 Nasal Cannula 3 06/30/23 17:37 Nasal Cannula 06/30/23 17:00 06/30/23 16:30 06/30/23 16:00 06/30/23 15:31 Room Air 06/30/23 15:00 Room Air 06/30/23 14:30 Room Air 06/30/23 14:25 Room Air 06/30/23 14:00 Room Air 06/30/23 12:57 Room Air Intake and Output 06/30/23 06/30/23 07/01/23 15:59 23:59 07:59 Intake Total 2049 / 2299 250 / 250 Output Total 0 / 0 0 / 0 Balance 2049 250 / 250 Intake: Intake, Total IV Amount 2049 / 0 250 / 250 Lactated Ringers 1000ML 1,000 250 / 250 ml @ 50 mls/hr IV .Q20H [facility] Rx# :[id number] Output: Output, Urine Amount 0 / 0 0 / 0 Other: Number of Voids 2 Weight 155 lb 159 lb 162 lb 12.8 oz Patient Weight 07/01/23 23:59 Weight 162 lb 12.8 oz Laboratory Results - last 24 hr 06/30/23 13:10: WBC 7.5, RBC 4.66, Hgb 13.9, Hct 43.7, MCV 93.8, MCH 29.9, MCHC 31.9, RDW 13.9, Plt Count 279, MPV 8.3, Neut % (Auto) 66.5, Lymph % (Auto) 24.2, [place] % (Auto) 6.4, Eos % (Auto) 2.4, Baso % (Auto) 0.5, Neut # (Auto) 5.0, Lymph # (Auto) 1.8, [place] # (Auto) 0.5, Eos # (Auto) 0.2, Baso # (Auto) 0.0, Sodium 145, Potassium 4.4, Chloride 111 H, Carbon Dioxide 26, Anion Gap 12.4, BUN 36 H, Creatinine 1.30 H, Estimated GFR 39 L, Est GFR ( Amer) 47 L, Glucose 75, Calcium 9.2, Magnesium 2.3, Total Bilirubin 0.4, AST 34, ALT 22, Alkaline Phosphatase 108, Troponin I < 0.01, Total Protein 6.8, Albumin 3.6, Globulin 3.2, Albumin/Globulin Ratio 1.1, TSH 0.14 L, Thyroxine (T4) 8.2 06/30/23 15:45: VBG pH 7.24 L, VBG pCO2 61.2 H, VBG pO2 52.7 H, VBG HCO3 25.8, VBG Total CO2 27.6 H, VBG O2 Saturation 84.0 H, VBG Base Excess -1.6 06/30/23 15:56: Lactate 1.2 06/30/23 16:29: SARS-CoV-2 (PCR) Not detected, Influenza A Untype (PCR) Not detected, Influenza Type B (PCR) Not detected 06/30/23 17:20: Urine Color Yellow, Urine Appearance Clear, Urine pH 5.5, Ur Specific [place] 1.020, Urine Protein Negative, Urine Glucose (UA) Negative, Urine Ketones Negative, Urine Blood Negative, Urine Nitrate Positive, Urine Bilirubin Negative, Urine Urobilinogen 0.2, Ur Leukocyte Esterase Negative, Urine RBC None, Urine WBC Occasional, Ur Squamous Epith Cells Occasional, Urine Bacteria None 06/30/23 18:50: Troponin I < 0.01 07/01/23 05:45: WBC 6.3, RBC 3.80 L, Hgb 11.5 L D, Hct 36.5 L, MCV 96.0, MCH 30.3, MCHC 31.6 L, RDW 13.9, Plt Count 238, MPV 7.5, Neut % (Auto) 53.4, Lymph % (Auto) 36.4, [place] % (Auto) 6.4, Eos % (Auto) 3.6, Baso % (Auto) 0.3, Neut # (Auto) 3.4, Lymph # (Auto) 2.3, [place] # (Auto) 0.4, Eos # (Auto) 0.2, Baso # (Aut
--- NOTE | 2023-07-01 18:30 | PC.NURSE ---
Pt was weaned off of O2 today from 3L to RA, Pt is tolerating well, Pt complained of pain multiple times and was given pain medication to ease pain th seems to work for a short time.
--- NOTE | 2023-07-01 18:34 | PC.NURSE ---
Pt was weaned off of O2 today from 3L to RA, Pt is tolerating well, Pt complained of pain multiple times and was given pain medication to ease pain this seem to comfort the pt enough to allow her to rest. Pt denies other needs thus far.
--- NOTE | 2023-07-01 19:49 | PC.NURSE ---
PATIENT REPORTS HAS NOT HAD A BM X 3-[address] MARS/SPEECH AND LANGUAGE SPECIALIST NOTIFIED AND ORDER RECEIVED FOR MOM 30 ML PO X 1 DOSE.
[2023-07-02] VITALS: BP 117/53; PULSE 68; RESP 18; TEMP 36.9; O2SAT 93
[2023-07-02 04:00] VITALS: BP 126/59; PULSE 62; RESP 17; TEMP 37.1; O2SAT 92; BMI 27.7
--- NOTE | 2023-07-02 05:40 | PC.NURSE ---
PATIENT C/O CHRONIC H/A AND EAR PAIN. MEDICATED TWICE WITH TRAMADOL AND MECLIZINE. VITAL SIGNS STABLE/AFEBRILE. A/O X 4. USES BSC WITH 1 ASSIST. LUNGS C/D BILAT. OCCASSIONAL DRY COUGH NOTED.
[2023-07-02 07:31] LABS: Basophils % 0.5 % (0.1-2.0); Eosinophils # 0.2 K/mm3 (0.0-0.4); Eosinophils % 3.3 % (0.1-12.0); Hematocrit 36.9 % (37.0-47.0); Hemoglobin 11.6 g/dL (12.2-16.2); Lymphocytes # 2.6 K/mm3 (0.7-4.5); Lymphocytes % 42.3 % (10-50); Mean Corpuscular HGB Conc 31.5 g/dL (31.8-35.4); Mean Corpuscular Hemoglobin 29.7 pg (27.0-31.2); Mean Corpuscular Volume 94.5 fl (81-99); Mean Platelet Volume 8.4 fl (7.4-10.4); Monocytes # 0.5 K/mm3 (0.1-1.0); Monocytes % 7.7 % (1.7-9.3); Neutrophils # 2.8 K/mm3 (1.8-7.8); Neutrophils % 46.2 % (37.0-80.0); Platelet Count 235 K/mm3 (142-424)
[2023-07-02 07:36] VITALS: BP 133/66; PULSE 71; RESP 16; TEMP 36.6; O2SAT 92
[2023-07-02 07:37] LABS: Anion Gap 8.8 mEq/L (5-15); Blood Urea Nitrogen 25 mg/dl (7-17); Calcium 8.3 mg/dl (8.4-10.2); Carbon Dioxide 30 mmol/L (22.0-30.0); Chloride 107 mmol/L (98-107); Creatinine Clearance Estimated 51 mL/min (50-200); Estimated Glomerular Filt Rate 60 ml/min (>60); GFR (African American) 73 ML/MIN (>60); Glucose 84 mg/dl (74-100); Potassium 4.8 mmoL/L (3.5-5.1); Sodium 141 mmol/L (136-145)
--- NOTE | 2023-07-02 08:15 | EXP.ACUTE.PN ---
Subjective *Date: 07/02/23 *Time: 08:15 Interval history: Patient feels better today, no new complaints. Medical Exam Vital signs and Labs for Last 24 Hours: Vital Signs Temp Pulse Resp BP Pulse Ox O2 Del Method O2 Flow Rate 07/02/23 07:36 97.8 F 71 16 133/66 92 L Room Air 07/02/23 06:38 Nasal Cannula 1 07/02/23 05:00 Nasal Cannula 1 07/02/23 04:00 98.8 F 62 17 126/59 L 92 L Nasal Cannula 1 07/02/23 02:57 Nasal Cannula 1 07/02/23 01:00 Nasal Cannula 1 07/02/23 00:00 98.5 F 68 18 117/53 L 93 L Nasal Cannula 1 07/01/23 22:54 Nasal Cannula 1 07/01/23 21:00 Nasal Cannula 2 07/01/23 19:51 89 L Room Air 07/01/23 19:40 98.0 F 73 19 104/44 L 90 L Room Air 07/01/23 17:00 Room Air 07/01/23 16:00 98.0 F 65 22 115/50 L 91 L Room Air 07/01/23 15:00 Room Air 07/01/23 12:57 Room Air 07/01/23 11:00 Room Air 07/01/23 12:00 98.2 F 66 18 119/54 L 92 L Room Air 07/01/23 11:12 91 L Room Air 07/01/23 09:00 Nasal Cannula 2 07/01/23 10:19 14 Intake and Output 07/01/23 07/02/23 07/02/23 23:59 07:59 15:59 Intake Total 240 / 1370 700 / 700 Output Total 0 / 0 0 / 0 Balance 240 / 1370 700 / 700 Intake: Intake, Oral Amount 240 / 1120 700 / 700 Output: Output, Urine Amount 0 / 0 0 / 0 Other: Number of Unmeasured Voids 1 1 Weight 162 lb 9.6 oz Patient Weight 07/02/23 23:59 Weight 162 lb 9.6 oz Laboratory Results - last 24 hr 07/02/23 06:33: WBC 6.0, RBC 3.90 L, Hgb 11.6 L, Hct 36.9 L, MCV 94.5, MCH 29.7, MCHC 31.5 L, RDW 14.0, Plt Count 235, MPV 8.4, Neut % (Auto) 46.2, Lymph % (Auto) 42.3, [place] % (Auto) 7.7, Eos % (Auto) 3.3, Baso % (Auto) 0.5, Neut # (Auto) 2.8, Lymph # (Auto) 2.6, [place] # (Auto) 0.5, Eos # (Auto) 0.2, Baso # (Auto) 0.0, Sodium 141, Potassium 4.8, Chloride 107, Carbon Dioxide 30, Anion Gap 8.8, BUN 25 H, Creatinine 0.90, Estimated Creat Clear 51, Estimated GFR 60, Est GFR ( Amer) 73, Glucose 84, Calcium 8.3 L I & O for Labs for Last 24 Hours: Intake & Output 06/29/23 06/30/23 07/01/23 07/02/23 23:59 23:59 23:59 23:59 Intake Total 2049 / 2299 970 / 1370 700 / 700 Output Total 0 / 0 0 / 0 0 / 0 Balance 2049 / 0 970 / 1370 700 / 700 Weight 159 lb 162 lb 11.218 oz 162 lb 9.6 oz Constitutional: Present no acute distress Respiratory: Present crackles (few in left base) and normal respiratory effort Cardiac: Present Reg Rate and Rhythm GI: Present normal bowel sounds; Absent tenderness Extremities: Present normal inspection and full ROM Skin: Present intact; Absent erythema Neuro: Present Grossly Intact and moves all extremities Assessment and Plan *Assessment and plan (1) Pneumonia: Status: Acute Qualifiers: Laterality: left Lung location: lower lobe of lung Pneumonia type: due to unspecified organism Qualified Code(s): J18.9 - Pneumonia, unspecified organism Category: Medical Code(s): J18.9 - Pneumonia, unspecified organism (2) Somnolence: Status: Acute Category: Medical Code(s): R40.0 - Somnolence (3) Acute hypotension: Status: Acute Category: Medical Code(s): I95.9 - Hypotension, unspecified (4) YESSICA (acute kidney injury): Status: Acute Category: Medical Code(s): N17.9 - Acute kidney failure, unspecified (5) Hyperlipidemia: Status: Acute Qualifiers: Hyperlipidemia type: unspecified Qualified Code(s): E78.5 - Hyperlipidemia, unspecified Category: Medical Code(s): E78.5 - Hyperlipidemia, unspecified (6) Hypoxia: Status: Acute Category: Medical Code(s): R09.02 - Hypoxemia (7) Polyneuropathy: Status: Acute Category: Medical Code(s): G62.9 - Polyneuropathy, unspecified (8) Depression: Status: Acute Qualifiers: Depression Type: other depressio
--- NOTE | 2023-07-04 14:56 | CARE MANAGER ---
Spoke with family member for post-discharge phone interview, no issues noted.
--- NOTE | 2023-07-05 22:38 | EXP.DC.SUM ---
General Admission date:: 06/30/23 Discharge date: 07/02/23 HPI HPI HPI: This patient is an 82-year-old female with a history of sepsis secondary to complicated urinary tract infection, previous admissions for weakness, recent rehab facility stay for weakness, and subsequent discharged home with home health and PT/OT presenting to the emergency department for evaluation with concern for fatigue, weakness, and inability to ambulate. Patient also complains of a headache. Patient denies any other concerns or complaints. She has had very poor oral intake. She does not drink very much at all. Her family states that she has been very lethargic today and difficult to wake up, and home health nurse noted low blood pressure at home, so she was brought in for evaluation. They note that she was supposed to stop taking blood pressure medication, as her blood pressure had been on the low side since discharge, however they did not realize that it was in her medication bubble packets prepackaged that she takes. He is not sure what she takes. No recent fevers, chills, cough, congestion, abdominal pain, nausea, vomiting, changes in bowel movements, changes in urine output, or other concerns noted recently. (above as per ER physician) Patient's son states she seemed to feel bad on Tuesday, but then was better yesterday. She was seen in the office by Dr. Urbina for a follow up from [facility] on 06/23/23 and her BP was low. He stopped her irbesartan but her son did not realize it was still in her prepackaged medication packs. Today she has been very lethargic and difficult to arouse. She does c/o body aches and chills. She was found to have pneumonia on a CXR and her BP was low upon presentation to the ER. It has now improved with fluids. Hospital Course Hospital Course Hospital Course: The patient's chest x-ray showed left basilar atelectasis versus pneumonia. The head CT showed nothing acute. The patient was started on sepsis protocol IV fluids and broad-spectrum antibiotics, as she had just been discharged from the [facility]. COVID test was ordered. Her blood pressure did improve with fluids. Her COVID test returned negative. She did begin feeling better and was able to sit up and eat breakfast the day after admission. Her supplemental oxygen was weaned. By 07/02/2023 she continued to improve. She was stable to be discharged home on oral antibiotics and will follow-up in the office in 3 to 4 days. Exam Data for Last 24 hours Vital signs and Labs for Last 24 Hours: Temp Pulse Resp BP Pulse Ox O2 Del Method O2 Flow Rate 97.8 F 71 16 133/66 92 L Room Air 1 07/02/23 07:36 07/02/23 07:36 07/02/23 07:36 07/02/23 07:36 07/02/23 07:36 07/02/23 08:34 07/02/23 06:38 Microbiology Reports for the Last 24 Hours: Microbiology 06/30/23 15:56 Blood Blood Culture - Final NO GROWTH AFTER 5 DAYS 06/30/23 15:56 Blood Blood Culture - Final NO GROWTH AFTER 5 DAYS Narrative: Constitutional Comments: Does not appear to feel well, lethargic *Routine HEENT Exam Head: Present normocephalic and atraumatic Eye: Present EOMI and PERRL ENT: Present mucous membranes dry *Routine Neck Exam Neck: Present supple and full ROM *Routine Respiratory Exam Respiratory: Present decreased breath sounds (worse in left base); Absent wheezes *Routine Cardiovascular Exam Cardiovascular: Present RRR *Routine Abdominal Exam Abdominal: Present soft and normoactive bowel sounds; Absent tenderness *Routine Rectal Exam Rectal:: deferred *Routine Genitalia Exam Genitalia:: deferred *Routine Extremities Exam Extremities: Present edema (bilateral LE's); Absent cyanosis or clubbing *Routine Skin Exam Skin: Present intact and pallor; Absent erythema *Routine Neurological Exam Neurological: Present altered mental status (able to answer questions but very lethargic) DS: Diagnosis
== END 2023-07-02 09:35 | disposition home or self-care (01) | DRG 194 ==
LOC: ER 15:44 → 2ND 16:38
PROVIDERS: Admitting Provider Family Medicine; Emergency Provider Emergency Medicine; PCP Family Medicine; Visit Provider Family Medicine
DX: J18.9 Pneumonia, unspecified organism (principal); N17.9 Acute kidney failure, unspecified; R40.0 Somnolence; I95.9 Hypotension, unspecified; E78.5 Hyperlipidemia, unspecified; G62.9 Polyneuropathy, unspecified; F41.9 Anxiety disorder, unspecified; F32.A Depression, unspecified; Z87.891 Personal history of nicotine dependence; I95.0 Idiopathic hypotension
CPT/HCPCS: 36415; 70450; 71045; 80048; 80053; 81001; 82803; 83605; 83735; 84436; 84443; 84484; 85025; 87040; 87636; 93005; 99291; J0456; J0696

== ENCOUNTER → 2023-07-15 10:28 | Outpatient (CLI) | payer MEDICARE, BC, SELFPAY ==
--- NOTE | 2023-07-15 10:35 | FL_ITS ---
FINAL REPORT CLINICAL HISTORY: dysphagia 1:58 MIN DAP:158.57 FINDINGS: MODIFIED BARIUM SWALLOW History: Dysphagia FINDINGS: Fluoroscopy was provided for the speech pathologist to evaluate the swallowing mechanism. The patient was given several different consistencies of barium while the swallow was visualized fluoroscopically. The report of the speech pathologist should be consulted prior to making dietary decisions. FLUOROSCOPY TIME: 1.58 minutes DAP 158.57 IMPRESSION: Modified barium swallow under fluoroscopic guidance. Please see the report of the speech pathologist for Dietary recommendations. Films reviewed , interpreted and dictated by Dr. Traci Vu. Transcribed by Bienvenido Gupta PA-C. Reviewed, Interpreted and Dictated by Traci Vu MD Transcribed by NOMI Major Authenticated and [facility]
--- NOTE | 2023-07-15 11:54 | HMH.SLMBS2 ---
Speech & Language Evaluation Speech/Language Mod Barium Swallow Start: 07/15/23 11:33 Freq: once Status: Complete Protocol: Document 07/15/23 11:33 JESSICA (Rec: 07/15/23 11:53 DOROTHYJAVYQUIN [id number]) General Information General Current Food Consistancy Regular,Thin Liquids Dentition Good Dentition Oxygen Status Room Air Patient Orientation Person,Place,Time Ability to Follow Directions Good Communication Ability No Impairment MBS Recommendations Diet Dietary Recommendations Regular,Thin Liquids Treatment/Strategies Strategy/Precaution Recommend Sitting Upright (90 deg), Double Swallow,Small Bites and Sips,Alternate Liquids/Solids Mod Barium Swallow Impressions Summary and Impressions Oral Phase Impression Minimal Impairment Oral Phase Summary Mrs. Gary oral preparatory and oral transit phases of the swallow appeared to be WFL for her age. She demonstrated minimal to mild prolonged mastication of solid boluses administered, as well as premature spillage observed with solids. When presented with barium tablet, she was observed to require multiple subsequent sips of thin liquid bolus to move the tablet. When interviewed, pt stated that she primarily takes one pill at a time and does not take multiple pills at once. Aimee was observed to had adequate lip seal around cutlery and straw presented throughout the study with mastication WFL. Pharyngeal Phase Impression Mild Impairment Pharyngeal Phase Summary From oral transit to pharyngeal phase of the swallow, Mrs. Gary was observed to have premature spillage of solid bolus throughout mastication which caused residue to be found of BOT and residual in the vallecular space. When completing subsequent swallows with both open cup and straw, pt demonstrated vallecular
== END ==
PROVIDERS: PCP Family Medicine; Visit Provider Family Medicine
DX: R13.12 Dysphagia, oropharyngeal phase (principal)
CPT/HCPCS: 70371; 92611

== ENCOUNTER 2025-05-15 16:00 | Emergency (ER) | payer MEDICARE, BC, SELFPAY ==
--- OUTSIDE RECORDS SUMMARY | 2017-02-15 17:00 | XMS_ITS | Encounter Summary ---
Author Organization [place] [address] Care Team Providers Care Knife Sharpener Name Role Phone González Freeman MD Primary Care Provider [phone] Encounter Details Date Type Department Care Team (Latest Contact Info) Description 02/15/2017 5:00 PM EDT Hospital Encounter [facility] X[facility] [address] [place] [address] González Freeman [place] [address] [address] Left without seen Social History Tobacco Use Types Packs/Day Years Used Date Smoking Tobacco: Never Smokeless Tobacco: Never Alcohol Use Standard Drinks/Week Comments No 0 (1 standard drink = 0.6 oz pur e alcohol) PHQ-2 Answer Date Recorded PHQ-2 Total Score 0 06/25/2020 Sexually Active Control Partners Comments Yes Male Comments No Sex and Gender Information Value Date Recorded Sex Assigned at Not on file Legal Sex Female 5:14 PM EDT Gender Identity Not on file Sexual Orientation Not on file COVID-19 Exposure Response Date Recorded In the last month, have you been in contact with someone who was confirmed or suspected to have Coronavirus / COVID-19? No / Unsure 09/29/2020 3:30 PM EST documented as of this encounter Functional Status * Cognitive and Functional Status Question Answer Date of Assessment Author Is the person deaf or does h e/she have serious difficulty hearing? No 06/25/2020 10:28 AM EDT Niki Chambers RMA Is the person blind or does he/she have serious difficulty seeing even when wearing glasses? No 06/25/2020 10:28 AM EDT Niki Jackson RMA Does this person have seriou s difficulty walking or climbing stairs? Yes 06/25/2020 10:28 AM EDT Niki Armando RMA Does this person have diffic ulty dressing or bathing? No 06/25/2020 10:28 AM EDT Niki Armando RMA * Alcohol Screening Score Answer Date of Assessment Author 0 06/23/2018 2:30 PM EDT Bess Whyte RN * Drug Screening Score Answer Date of Assessment Author 0 06/23/2018 2:30 PM EDT Niesha Whyte RN * Question Answer Date of Assessment Author How often do you have a drin k containing alcohol? 0 06/23/2018 2:30 PM EDT Nunu Whyte RN * PHQ-9 Total Score Answer Date of Assessment Author 0 06/25/2020 10:29 AM EDT Niki Armando RMA * Question Answer Date of Assessment Author Little interest or pleasure in doing things 0 06/25/2020 10:29 AM EDT Niki Armando RMA Feeling down, depressed, or hopeless 0 06/25/2020 10:29 AM EDT Niki Armando RMA PHQ-2 Total Score 0 06/25/2020 10:29 AM EDT Niki Armando RMA documented as of this encounter Mental Status * Cognitive and Functional Status Question Answer Entry Date Author Because of a physical, menta l or emotional condition, does this person have difficulty doing errands alone such as visiting a doctor's office or shopping? Yes 06/25/2020 10:28 AM EDT Niki Armando RMA Because of a physical, menta l or emotional condition, does this person have serious difficulty concentrating, remembering or making decisions? Yes 06/25/2020 10:28 AM EDNiki Purcell RMA documented in this encounter Plan of Treatment Not on file documented as of this encounter Goals Goal Patient Goal Type Associated Problems Recent Progress Patient-Stated? Author Blood Pressure < 140/90 Blood Pressure 116/62( 020 10:30 AM EDT) No Paulina Jimenes N, RMA Eat better, exercise, reach an ideal body weight General No Leida Ricks CMA documented as of this encounter Visit Diagnoses Not on filedocumented in this encounter Additional Health Concerns Infection Onset Date Last Indicated Resolved Time ESBL organism 05/08/2019 05/08/2019 11/06/2019 7:5 8 AM EST Assessment Noted Time A fall risk assessment has been complete d for the patient 04/12/2016 3:46 PM EDT documented as of this encounter Care Teams Knife Sharpener Relationship Specialty Start Date End Date González Freeman MD [address] [place], [place] [address] PCP - General Family Medicine 12/04/12 06/12/18 documented as of this encounter
--- OUTSIDE RECORDS SUMMARY | 2024-12-19 11:30 | XMS_ITS ---
Author Organization [facility] Address [address] [facility] [address] [facility] [address] [place] [id number] Care Team Providers Care Plastic Press Operator Name Role Phone Zhen Urbina Primary Care Provider Allergies No Known Allergies Results Component Value Reference Range Notes CBC Venipuncture (in house) Reviewed date:12/20/2024 08:34:26 AM Interpretation:Normal Performing Lab: Notes/Report: Normal wbc 7.7 3.5 - 10 lymph 29.7% 15 - 50 mid 6.7% 2 - 15 gran 63.6% 35 - 80 rbc 4.65 3.5 - 5.5 hgb 13.8 11.5 - 16.5 hct 41.3 35 - 55 mcv 88.9 75 - 100 mch 29.6 25 - 35 mchc 33.3 31 - 38 platlet 220 100 - 400 P-Vitamin B12 Reviewed date:12/20/2024 08:34:26 AM Interpretation:399 Performing Lab: Notes/Report: Test performed by [facility] [address], [place] [address] [address] , [address], [place] [address] Sohan Siegel MD, Painter Sign Maintenance CLIA: [id number] Vitamin B12 101 966-7553 pg/mL P-Comprehensive Metabolic Pa micki (CMP) Reviewed date:12/20/2024 08:34:26 AM Interpretation:alk phos 126 Performing Lab: Notes/Report: Test performed by [facility] [address], [place] [address] [address], [address], [place] [address] Sohan Siegel MD, Painter Sign Maintenance CLIA: [id number] Sodium 145 135-145 mmol/L Potassium 4.5 3.5-5.3 mmol/L Chloride 107 97-108 mmol/L CO2 26 22-32 mmol/L Glucose 97 65-99 mg/dL BUN 19 8-23 mg/dL Creatinine 0.83 0.50-1.00 mg/dL Calcium 9.1 8.6-10.4 mg/dL eGFR by Creatinine 69 >59 mL/min/1.73m2 Protein 6.6 6.0-8.3 g/dL Albumin 4.0 3.5-5.3 g/dL Alkaline Phosphatase 126 35-121 IU/L ALT (SGPT) 12 <5-47 IU/L AST (SGOT) 14 <5-40 IU/L Bilirubin, Total 0.3 <0.2-1.2 mg/dL A/G Ratio 1.5 1.1-2.5 P-Lipid Panel Reviewed date:12/20/2024 08:34:26 AM Interpretation:Normal Performing Lab: Notes/Report: Test performed by [facility], [address] , [address], [place] [address] Sohan Siegel MD, Painter Sign Maintenance CLIA: [id number] Cholesterol 192 <200 mg/dL Triglycerides 117 <150 mg/dL HDL Cholesterol 69 >39 mg/dL Cholesterol / HDL Ratio 2.78 0.00-4.44 Ratio Non-HDL Cholesterol 123 <130 mg/dL LDL Cholesterol (Calculation) 100 <130 mg/dL LDL Cholesterol Levels* Less than 100 mg/dL Optimal 100 to 129 mg/dL Near Optimal/ Above Optimal 130 to 159 mg/dL Borderline High 160 to 189 mg/dL High 190 mg/dL and above Very High * Categories as recommended by the 2004 ATPIII guidelines LDL/HDL Ratio 1.4 <3.3 Ratio LDL Cholesterol Patient History Test Date: 11/21/2023 LDL Results: 95 Units: mg/dL % Change: - Test Date: 12/19/2024 LDL Results: 100 Units: mg/dL % Change: +5% P-TSH reflex to FT4 Reviewed date:12/20/2024 08:34:26 AM Interpretation:Normal Performing Lab: Notes/Report: Test performed by [facility] [address] [place] [address] , [place] [address] Sohan Siegel MD, Painter Sign Maintenance CLIA: [id number] TSH reflex to FT4 0.49 0.43-5.25 mU/L P-Vitamin D 25-Hydroxy Reviewed date:12/20/2024 08:34:26 AM Interpretation:29.6 Performing Lab: Notes/Report: Test performed by [facility] [address] [place] [address] , [address], [place] [address] Sohan Siegel MD, Painter Sign Maintenance CLIA: [id number] Vitamin D 25-Hydroxy 29.6 30.0-100.0 ng/mL Interpretation of Vitamin D 25 OH: < 20 ng/mL - Deficiency 20 - 29 ng/mL - Insufficiency 30 - 100 ng/mL - Sufficiency > 100 ng/mL - Super-therapeutic- toxicity may occur above this level. Clinical correlation required. REASON FOR VISIT 4 month ckup Medications Medication SIG (Take, Route, Frequency, Duration) Notes Start Date End Date Status traMADol HCl 50 MG 1 tablet as needed Orally four times a day as needed 07/11/2023 Active Meclizine HCl 12.5 MG 1 tab(s) orally 3 times a day as needed; Duration: 30 day(s) Active MiraLax 17 GM bid Active Atorvastatin Calcium 20 MG Take 1 tablet by mouth once daily for 30 days; Duration: 30 days Active Omeprazole 40 MG TAKE 1 CAPSULE BY MO UT IN THE MORNING 30 MINUTES BEFORE MORNING MEAL Orally Once a day; Duration: 90 days Active Magnesium Oxide 250 MG 1 tab(s) orally o nce a day Active Ascorbic Acid 1000 MG 1 tablet Orally On ce a day Active Vitamin D (Cholecalciferol) 50 MCG (1999) 1 capsule Orally Once a day Active Valerian Root 500 MG 1 capsule before bedtime as needed Orally Once a day at HS prn Active Oxygen - per nasal cannula as directed prn Active Pregabalin 225 MG 1 capsule Orally Two times a day 12/19/2024 Active Loratadine 10 MG 1 tablet Orally Once a day; Duration: 90 days Active OLANZapine 15 MG TAKE 1 TABLET BY TIANA ONCE DAILY AT BEDTIME; Duration: 90 days Active Metamucil Fiber 51.7 % as directed Orall y twice daily Active clonazePAM 0.5 MG 1/2 to 1 tablet Oral ly two times a day as needed 06/29/2024 Active Sertraline HCl 100 MG Take 1 tablet by [facility] once daily Active Montelukast Sodium 10 MG 1 tablet Orally once daily; Duration: 90 days Active Vital Signs Weight 153 lbs 12/19/2024 Blood pressure systolic 122 mm Hg 12/19/19 25 Blood pressure diastolic 68 mm Hg 025 Heart Rate 81 /min 12/19/2024 Height 62.50 in 12/19/2024 BMI 27.54 kg/m2 12/19/2024 Encounters Encounter Location Date Provider Diagnosis [facility] [address] [place], [place] [id number] 12/19/2024 [place] Pure hypercholestero lemia E78.00 ; Vitamin D deficiency E55.9 ; Polyneuropathy G62.9 ; Depression, unspecified depression type F32.9 ; Anxiety F41.9 and Somnolence R40.0 Assessments Encounter Date Diagnosis (ICD Code) Assessment Notes Treatment Notes Treatment Clinical Notes Section Notes 12/19/2024 Pure hypercholesterolemia (ICD-10 - E78.00) 12/19/2024 Vitamin D deficiency (ICD-10 - E55.9) 12/19/2024 Polyneuropathy (ICD- 10 - G62.9) 12/19/2024 Depression, unspecif ied depression type (ICD-10 - F32.9) 12/19/2024 Anxiety (ICD-10 - F41.9) 12/19/2024 Somnolence (ICD-10 - R40.0) Unable to provide urine today, will collect sample at home and return it to office for evaluation Plan Of Treatment Medication Medication Name Sig Start Date Stop Date Notes Pregabalin 225 MG 1 capsule Orally Two times a day 025 Pregabalin 200 MG 1 capsule Orally Twice a day 07/30/2024 Treatment Notes Assessment Notes Somnolence Unable to provide ur ine today, will collect sample at home and return it to office for evaluation Next Appt Details Follow Up: 6 Months, Reason: Provider Name:Zhen López ry, 06/19/2025 03:00:00 PM, [address], [address] , [place], [place], [id number], Progress Notes * ELPIDIO GROVERDOB: [birth year] (84 yo F)Acc No.[id number]:12/19/2024 Progress Notes Patient: ELPIDIO NGUYEN Provider: Kiya Urbina M.D. :1940 A ge:84 Y S ex:Female Date:12/19/2024 Address:[address] [place] [address], [facility] Subjective: * Chief Complaints: * 1 . 4 month ckup. * HPI: P sychology: 84 year old female presents with c/o Anxiety P t here to f/u. Pt's son states that pt does not seem to be in her right mind. * ROS: D ERMATOLOGY: no R gerry. n o H raúl. G ASTROENTEROLOGY: no N ausea. n o V omiting. U ROLOGY: no D ifficulty urinating. n o B lood in urine. * Medical History: I rritable Bowel Syndrome, Anxiety, Allergy, Arthritis, Depression/Anxiety, Migraines, Vertigo with inner ear, Vitamin D Deficiency, Hyperlipidemia. * Surgical History: C holecystectomy , Tonsillectomy , Stomach Exploritory , Bilateral Breast Cyst Removal . * Hospitalization/Major Diagno stic Procedure: D ischarge Diagnoses(1) Enteritis:Status: AcuteCode(s):K52.9 - Noninfective gastroenteritis and colitis, unspecified(2) Abdominal pain:Status: AcuteCode(s):R10.9 - Unspecified abdominal painQualifiers:Abdominal location: periumbilical Qualified Code(s): R10.33 - Periumbilical pain(3) Headache:Status: AcuteCode(s):R51.9 - Headache, unspecifiedQualifiers:Headache chronicity pattern: acute headache Headache type: unspecified Intractability: not intractable(4) Hypoxemia:Status: AcuteCode(s):R09.02 - Hypoxemia(5) Urinary tract infection:Status: AcuteCode(s):N39.0 - Urinary tract infection,. * Family History: F ather: . M other: , Bone Cancer. 2 son(s) - healthy. . * Social History: C URRENT TOBACCO USE: No . C affeine: yes, soft drinks. Past smoking status: never smoked. * Medications: T aking Metamucil Fiber 51.7 % Packet as directed Orally twice daily , Taking Oxygen - - per nasal cannula as directed , Notes to Pharmacist: prn, Taking Valerian Root 500 MG Capsule 1 capsule before bedtime as needed Orally Once a day at HS prn , Taking Vitamin D (Cholecalciferol) 50 MCG (2000 UT) Capsule 1 capsule Orally Once a day , Taking Ascorbic Acid 1000 MG Tablet 1 tablet Orally Once a day , Taking Magnesium Oxide 250 MG Tablet 1 tab(s) orally once a day , Taking MiraLax , Notes to Pharmacist: 17 GM bid, Taking Meclizine HCl 12.5 MG Tablet 1 tab(s) orally 3 times a day as needed , Taking traMADol HCl 50 MG Tablet 1 tablet as needed Orally four times a day as needed , Taking Omeprazole 40 MG Capsule Delayed Release TAKE 1 CAPSULE BY MOUTH IN THE MORNING 30 MINUTES BEFORE MORNING MEAL Orally Once a day , Taking Atorvastatin Calcium 20 MG Tablet Take 1 tablet by mouth once daily for 30 days , Taking Pregabalin 200 MG Capsule 1 capsule Orally Twice a day , Taking Montelukast Sodium 10 MG Tablet 1 tablet Orally once daily , Taking Sertraline HCl 100 MG Tablet Take 1 tablet by mouth once daily , Taking clonazePAM 0.5 MG Tablet 1/2 to 1 tablet Orally two times a day as needed , Taking OLANZapine 15 MG Tablet TAKE 1 TABLET BY MOUTH ONCE DAILY AT BEDTIME , Taking Loratadine 10 MG Tablet 1 tablet Orally Once a day , Medication List reviewed and reconciled with the patient * Allergies: N .K.D.A. Objective: * Vitals: W t:153, Temp:98.0, BP:122/68, HR:81, O2 Sat:92% on RA, Nurse:ra, Ht: 62.50, BMI:27.54. * Examination: G eneral Examination: General Appearance: N AD, using a walker to assist with ambulation, seems tired. H eart: R SR. L ungs: c lear to auscultation. S kin: normal, no rash. Assessment: * Assessment: 1. P ure hypercholesterolemia - E78.00 (Primary) 2 . V itamin D deficiency - E55.9 3 . P olyneuropathy - G62.9 4 . D epression, unspecified depression type - F32.9 5 . A nxiety - F41.9 6 . S omnolence - R40.0 Plan: * Treatment: Value Reference Range A /G Ratio 1.5 1.1-2.5 - * A lbumin 4.0 3.5-5.3 - g/dL * A lkaline Phosphatase 126 H 35-121 - IU/L * A LT (SGPT) 12 <5-47 - IU/L * A ST (SGOT) 14 <5-40 - IU/L * B ilirubin, Total 0.3 <0.2-1.2 - mg/dL * B UN 19 8-23 - mg/dL * C alcium 9.1 8.6-10.4 - mg/dL * C hloride 107 97-108 - mmol/L * C O2 26 22-32 - mmol/L * C reatinine 0.83 0.50-1.00 - mg/dL * G lucose 97 65-99 - mg/dL * P otassium 4.5 3.5-5.3 - mmol/L * S odium 145 135-145 - mmol/L * P rotein 6.6 6.0-8.3 - g/dL * e GFR by Creatinine 69 >59 - mL/min/1.73m2 * Luz De La Vega 12/20/2024 8:34: 17 AM >See phone encounter ?LAB: P-Lipid Panel (Collection Date & Time - 12/19/2024 03:06 PM)?Normal* Value Reference Range C holesterol / HDL Ratio 2.78 0.00-4.44 - Ratio * C holesterol 192 <200 - mg/dL * H DL Cholesterol 69 >39 - mg/dL * L DL Cholesterol (Calculation) 100 <130 - mg/d L * L DL/HDL Ratio 1.4 <3.3 - Ratio * N on-HDL Cholesterol 123 <130 - mg/dL * T riglycerides 117 <150 - mg/dL * YoletteLuz coates 12/20/2024 8:34: 17 AM >See phone encounter ?LAB: P-TSH reflex to FT4 (Collection Date & Time - 12/19/2024 03:06 PM)? Normal* Value Reference Range T SH reflex to FT4 0.49 0.43-5.25 - mU/L * Luz De La Vega 12/20/2024 8:34: 17 AM >See phone encounter 2.?Vitamin D deficiency?LAB: P-Vitamin D 25-Hydroxy (Collection Date & Time - 12/19/2024 03:06 PM)? 29.6* Value Reference Range V itamin D 25-Hydroxy 29.6 L 30.0-100.0 - ng/mL * Luz De La Vega 12/20/2024 8:34: 17 AM >See phone encounter 3.?Polyneuropathy? Stop Pregabalin Capsule, 200 MG, 1 capsule, Orally, Twice a day;?Start Pregabalin Capsule, 225MG, 1 capsule, Orally, Two times a day, 60, Refills 2.?LAB: P-Vitamin B12 (Collection Date & Time - 12/19/2024 03:06 PM)?399* Value Reference Range V itamin B12 431 967-1765 - pg/mL * Luz De La Vega 12/20/2024 8:34: 17 AM >See phone encounter 4.?Somnolence?LAB: CBC Venipuncture (in house) (Collection Date & Time - 12/19/2024)? Normal* Value Reference Range w bc 7.7 3.5 - 10 * l ymph 29.7% 15 - 50 * m id 6.7% 2 - 15 * g ran 63.6% 35 - 80 * r bc 4.65 3.5 - 5.5 * h gb 13.8 11.5 - 16.5 * h ct 41.3 35 - 55 * m cv 88.9 75 - 100 * m ch 29.6 25 - 35 * m chc 33.3 31 - 38 * p latlet 220 100 - 400 * Elizabet Holley 12/19/2024 4:19:50 PM > Luz De La Vega 12/20/2024 8:34:17 AM >See phone encounter Notes: Unable to provide urine today, will collect sample at home and return it to office for evaluation?? * Procedure Codes: G 2211 Complex e/[place], [address] CBC WITH AUTO DIFF, 3074F SYST BP LT 130 MM HG, 3078F DIAST BP < 80 MM HG * Follow Up: 6 Months * Images: Billing Information: * Visit Code: 41978 Office Visit, Est Pt., Level 4. * Procedure Codes: G2211 Complex e/[place] [address] CBC WITH AUTO DIFF. 3074F SYST BP LT 130 MM HG. 3078F DIAST BP < 80 MM HG. * Electronic signature of Shirley Urbina MD on 05/15/2025 at 04:22 PM EDT Sign off status: Pending * Provider: Kiya Urbina M.D. Date: 0 12/19/2024 Generated for Doris parra/Sebastian/Krishna on: 0 05/15/2025 04:22 PM EDT History and Physical Notes * HPI (History of Present Illness) Category Sub-Category Detail Notes Category Not es Psychology Anxiety Pt here to f/u. Pt's son states that pt does not seem to be in her right mind Examination Category Sub-Category Detail Notes Category Not es General Examination Heart: RSR Lungs: clear to auscultatio n General Appearance: NAD, using a walker to assist with ambulation, seems tired Skin: normal, no rash
--- OUTSIDE RECORDS SUMMARY | 2024-12-26 09:20 | XMS_ITS ---
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 Gr. >=1.030 Ketone Neg Bili Neg Gluc Neg TEN-UTI panel Reviewed date:01/02/2025 01:23:02 PM Interpretation:E. coli Performing Lab: Notes/Report: E. coli REASON FOR VISIT Urine Specimen Medications Medication SIG (Take, Route, Frequency, Duration) Notes Start Date End Date Status Atorvastatin Calcium 20 MG Take 1 tablet by mouth once daily for 30 days; Duration: 30 days Active Montelukast Sodium 10 MG 1 tablet Orally once daily; Duration: 90 days Active Meclizine HCl 12.5 MG 1 tab(s) orally 3 times a day as needed; Duration: 30 day(s) Active traMADol HCl 50 MG 1 tablet as needed Orally four times a day as needed 07/11/2023 Active Omeprazole 40 MG TAKE 1 CAPSULE BY MOUTH IN THE MORNING 30 MINUTES BEFORE MORNING MEAL Orally Once a day; Duration: 90 days Active Valerian Root 500 MG 1 capsule before bedtime as needed Orally Once a day at HS prn Active Vitamin D (Cholecalciferol) 50 MCG (2000 UT) 1 capsule Orally Once a day Active MiraLax 17 GM bid Active Ascorbic Acid 1000 MG 1 tablet Orally On ce a day Active Magnesium Oxide 250 MG 1 tab(s) orally o nce a day Active Metamucil Fiber 51.7 % as directed Orall y twice daily Active Oxygen - per nasal cannula as directed prn Active Pregabalin 225 MG 1 capsule Orally Two times a day 12/19/2024 Active Nitrofurantoin Monohyd Macro 100 MG 1 capsule with food Orally every 12 hrs; Duration: 5 day(s) 12/26/2024 Active clonazePAM 0.5 MG 1/2 to 1 tablet Oral ly two times a day as needed; Duration: 30 day(s) 12/24/2024 Active OLANZapine 15 MG TAKE 1 TABLET BY TIANA TH ONCE DAILY AT BEDTIME; Duration: 90 days Active Loratadine 10 MG 1 tablet Orally Once a day; Duration: 90 days Active Sertraline HCl 100 MG Take 1 tablet by m out once daily Active Encounters Encounter Location Date Provider Diagnosis [facility] [address] [facility] [address] [facility] [address] [place], [place] [id number] 12/26/2024 Zhen Urbina UTI (lower urinary tract infection) N39.0 Assessments Encounter Date Diagnosis (ICD Code) Assessment Notes Treatment Notes Treatment Clinical Notes Section Notes 12/26/2024 UTI (lower urinary tract infection) (ICD-10 - N39.0) Plan Of Treatment Medication Medication Name Sig Start Date Stop Date Notes Nitrofurantoin Monohyd Macro 100 MG 1 capsule with food Orally every 12 hrs; Duration: 5 day(s) 12/26/2024 Next Appt Details Provider Name:Zhen López , 06/19/2025 03:00:00 PM, [address] [facility] [address] [facility], [address], [place], [place], [id number], Progress Notes * ELPIDIO GROVERDOB: [birth year] (84 yo F)Acc No.[id number]:12/26/2024 Patient: ELPIDIO NGUYEN Provider: Kiya Urbina M.D. :1940 A ge:84 Y S ex:Female Date:12/26/2024 Address:[address] [place] [address], [place] [id number] Subjective: * Chief Complaints: * 1 . Urine Specimen. * Medical History: I rritable Bowel Syndrome, Anxiety, Allergy, Arthritis, Depression/Anxiety, Migraines, Vertigo with inner ear, Vitamin D Deficiency, Hyperlipidemia. * Medications: T aking Metamucil Fiber 51.7 % Packet as directed Orally twice daily , Taking Oxygen - - per nasal cannula as directed , Notes to Pharmacist: prn, Taking Valerian Root 500 MG Capsule 1 capsule before bedtime as needed Orally Once a day at HS prn , Taking Vitamin D (Cholecalciferol) 50 MCG (1999 UT) Capsule 1 capsule Orally Once a [...] once daily for 30 days , Taking Montelukast Sodium 10 MG Tablet 1 tablet Orally once daily , Taking Sertraline HCl 100 MG Tablet Take 1 tablet by mouth once daily , Taking OLANZapine 15 MG Tablet TAKE 1 TABLET BY MOUTH ONCE DAILY AT BEDTIME , Taking Loratadine 10 MG Tablet 1 tablet Orally Once a day , Taking Pregabalin 225 MG Capsule 1 capsule Orally Two times a day , Taking clonazePAM 0.5 MG Tablet 1/2 to 1 tablet Orally two times a day as needed , Medication List reviewed and reconciled with the patient Objective: * Vitals: Assessment: * Assessment: 1. U TI (lower urinary tract infection) - N39.0 (Primary) Plan: * Treatment: Value Reference Range C olor/Clarity dark yellow/clear * L euk Neg * N itrite Pos * U robili 3.2 * P rotein Neg * p H 5.5 * B lood Trace-Intact * S p. Gr. >=1.030 * K etone Neg * B pb Neg * G oracio Neg * Elizabet Holley 12/26/2024 1:40:11 PM >Malena Arzola 12/26/2024 03:43:07 PM > left message for return callGoMalena mancera 12/26/2024 3:45:15 PM > pts son informed ?LAB: TEN-UTI panel (Collection Date & Time - 12/26/2024)?E. coli* Malena Arzola 12/28/2024 10:4 8:15 AM > pt started on Macrobid, bacteria is suspetible. have pt return if symptoms do not resolve upon completion of abx.Elizabet Holley 12/28/2024 11:08:20 AM > LM for pt to return callKingElizabet 12/31/2024 4:12:18 PM > LM for return call 2.?Others? Start Nitrofurantoin Monohyd Macro Capsule, 100 MG, 1 capsule with food, Orally, every 12 hrs, 5 day(s), 10.?? * Procedure Codes: 8 1002 Urinalysis, no micro * Images: Billing Information: * Visit Code: * Procedure Codes: 21388 Urinalysis, no micro. * Electronic signature of Shirley Urbina MD on 05/15/2025 at 04:23 PM EDT Sign off status: Pending * Provider: Kiya Urbina M.D. Date: 0 12/26/2024 Generated for Doris parra/Sebastian/Krishna on: 05/15/2025 04:23 PM EDT
--- OUTSIDE RECORDS SUMMARY | 2025-04-23 08:30 | XMS_ITS ---
[facility] [address] [facility] [address] [facility] [address] [place] [id number] Care Team Providers Care Bench Molder Apprentice Name Role Phone Zhen Urbina Primary Care Provider [phone] Results Component Value Reference Range Notes Urinalysis - Inhouse Reviewed date:04/23/2025 06:01:09 PM Interpretation: Performing Lab: Notes/Report: Leuk Trace Nitrite Pos Urobili 3.2 Protein Neg pH 5.5 Blood 1+ Sp. Gr. 1.025 Ketone Trace Bili Neg Gluc Neg TEN-UTI panel Reviewed date:04/28/2025 01:30:40 PM Interpretation:Abnormal Performing Lab: Notes/Report: Abnormal REASON FOR VISIT UA with culture only Medications Medication SIG (Take, Route, Frequency, Duration) Notes Start Date End Date Status clonazePAM 0.5 MG 1/2 to 1 tablet Oral ly two times a day as needed; Duration: 30 day(s) 12/24/2024 Active Atorvastatin Calcium 20 MG Take 1 tablet by mouth once daily; Duration: 90 Active OLANZapine 15 MG TAKE 1 TABLET BY TIANA TH ONCE DAILY AT BEDTIME; Duration: 90 Active Sertraline HCl 100 MG 1 tablet Orally On ce a day; Duration: 90 days Active Pregabalin 225 MG 1 capsule Orally Two times a day 12/19/2024 Active Montelukast Sodium 10 MG 1 tablet Orally once daily; Duration: 90 days Active Loratadine 10 MG 1 tablet Orally Once a day; Duration: 90 days Active Omeprazole 40 MG TAKE 1 CAPSULE BY MOUTH IN THE MORNING 30 MINUTES BEFORE MORNING MEAL Orally Once a day; Duration: 90 days Active traMADol HCl 50 MG 1 tablet as needed Orally four times a day as needed 07/11/2023 Active Magnesium Oxide 250 MG 1 tab(s) orally o nce a day Active MiraLax 17 GM bid Active Vitamin D (Cholecalciferol) 50 MCG (1999 UT) 1 capsule Orally Once a day Active Ascorbic Acid 1000 MG 1 tablet Orally On ce a day Active Meclizine HCl 12.5 MG 1 tab(s) orally 3 times a day as needed; Duration: 30 day(s) Active Oxygen - per nasal cannula as directed prn Active Valerian Root 500 MG 1 capsule before bedtime as needed Orally Once a day at HS prn Active Metamucil Fiber 51.7 % as directed Orall y twice daily Active Nitrofurantoin Monohyd Macro 100 MG 1 capsule with food Orally every 12 hrs; Duration: 5 days 04/23/2025 Active Encounters Encounter Location Date Provider Diagnosis [facility] [address] [place], [place] [id number] 04/23/2025 Zhen Urbina Confusion R41.0 and Acute UTI N39.0 Assessments Encounter Date Diagnosis (ICD Code) Assessment Notes Treatment Notes Treatment Clinical Notes Section Notes 04/23/2025 Confusion (ICD-10 - R41.0) 04/23/2025 Acute UTI (ICD-10 - N39.0) Plan Of Treatment Medication Medication Name Sig Start Date Stop Date Notes Nitrofurantoin Monohyd Macro 100 MG 1 capsule with food Orally every 12 hrs; Duration: 5 days 04/23/2025 Next Appt Details Provider Name:Zhen López ry, 06/19/2025 03:00:00 PM, [address], [address], [place], [place], [id number], Progress Notes * ELPIDIO GROVERDOB: [birth year] (84 yo F)Acc No.[id number]:04/23/2025 Patient: ELPIDIO NGUYEN Provider: Kiya Urbina M.D. :1940 A ge:84 Y S ex:Female Date:04/23/2025 Address:[address] [place] [id number] Subjective: * Chief Complaints: * 1 . UA with culture only. * HPI: U rology: Son notes that patient is having increased confusion, see TE. * Medical History: * Medications: T aking Metamucil Fiber 51.7 [...] MEAL Orally Once a day , Taking Montelukast Sodium 10 MG Tablet 1 tablet Orally once daily , Taking Loratadine 10 MG Tablet 1 tablet Orally Once a day , Taking Pregabalin 225 MG Capsule 1 capsule Orally Two times a day , Taking clonazePAM 0.5 MG Tablet 1/2 to 1 tablet Orally two times a day as needed , Taking Sertraline HCl 100 MG Tablet 1 tablet Orally Once a day , Taking Atorvastatin Calcium 20 MG Tablet Take 1 tablet by mouth once daily , Taking OLANZapine 15 MG Tablet TAKE 1 TABLET BY MOUTH ONCE DAILY AT BEDTIME , Discontinued Nitrofurantoin Monohyd Macro 100 MG Capsule 1 capsule with food Orally every 12 hrs Objective: * Vitals: Assessment: * Assessment: 1. A cute UTI - N39.0 (Primary) 2 . C onfusion - R41.0 Plan: * Treatment: 2.?Confusion?LAB: Urinalysis - Inhouse (Collection Date & Time - 04/23/2025)* Value Reference Range L euk Trace * N itrite Pos * U robili 3.2 * P rotein Neg * p H 5.5 * B lood 1+ * S p. Gr. 1.025 * K etone Trace * B pb Neg * G oracio Neg * Please send for Elizabet Donnelly 04/23/2025 11:59:03 AM EDT > * Procedure Codes: 8 1002 Urinalysis, no micro * Images: Billing Information: * Visit Code: * Procedure Codes: 80068 Urinalysis, no micro. * Electronic signature of Shirley Urbina MD on 05/15/2025 at 04:23 PM EDT Sign off status: Pending * Provider: Kiya Urbina M.D. Date: 04/23/2025 Generated for Doris parra/Sebastian/Meredithitting on: 05/15/2025 04:23 PM EDT
[2025-05-15] VITALS (8 sets, daily range): BP systolic 137–152; BP diastolic 57–67; PULSE 53–62; RESP 13–20; TEMP 36.5–37.2; O2SAT 92–94; BMI 29.2
--- NOTE | 2025-05-15 16:18 | ECG_ITS ---
APPROVED REPORT Exam: Resting ECG HR:57 bpm ECG Measurements Heart Rate 57 AXES IN 129 P 57 QRSd 97 QRS 41 QT 408 T 43 QTc 403 Conclusion Sinus bradycardia without acute ST or T wave changes concerning for ischemia Electronically signed by : Michell Webster, 05/16/2025 00:51:26
--- NOTE | 2025-05-15 16:19 | XR_ITS ---
PROCEDURE INFORMATION: Exam: XR Chest Exam date and time: 05/15/2025 4:41 PM Age: 84 years old Clinical indication: Other: Weakness; Additional info: Weakness, poor appetite, cognitive decline. TECHNIQUE: Imaging protocol: Radiologic exam of the chest. Views: 2 views. COMPARISON: CR XR CHEST PORTABLE 06/30/2023 1:32 PM FINDINGS: Lungs: Low lung volumes. Pulmonary vasculature grossly normal. No gross pulmonary infiltrates or edema pattern. Pleural spaces: No pleural effusion. No pneumothorax. Heart/Mediastinum: Heart size normal. No tracheal/mediastinal shift. Bones/joints: No acute osseous abnormalities are identified. Osteopenia. Gastrointestinal tract: Colonic interposition beneath the right hemidiaphragm incidentally noted. IMPRESSION: 1. No acute thoracic process. 2. Low lung volumes.
--- OUTSIDE RECORDS SUMMARY | 2025-05-15 16:22 | XMS_ITS | Clinical Summary ---
Author Organization Healthcare Address [address] [place] [address] Care Team Providers Care Architecture Faculty Member Name Role Phone González Freeman MD Primary Care Provider Family History Medical History Relation Name Comments Other cancer Other Relation Name Status Comments Other Social History Tobacco Use Types Packs/Day Years Used Date Smoking Tobacco: Never Comments Unknown Sex and Gender Information Value Date Recorded Sex Assigned at Not on file Legal Sex Female 6:29 PM EDT Gender Identity Not on file Sexual Orientation Not on file Last Filed Vital Signs Vital Sign Reading Time Taken Comments Blood Pressure - - Pulse - - Temperature - - Respiratory Rate - - Oxygen Saturation - - Inhaled Oxygen Concentration - - Weight 60.3 kg (133 lb 0.1 oz) 05/13/2017 9:40 A M EDT Height 157.5 cm (5' 2 ) 05/13/2017 9:40 AM EDT Body Mass Index 24.33 05/13/2017 9:40 AM EDT Plan of Treatment Not on file Care Teams Architecture Faculty Member Relationship Specialty Start Date End Date González Freeman MD [address] [place] [phone] PCP - General 03/06/21
--- OUTSIDE RECORDS SUMMARY | 2025-05-15 16:22 | XMS_ITS | Referral Summary ---
Author Organization [facility] Address [address] [place] [id number] Care Team Providers Care Stitching Department Supervisor Name Role Phone González Freeman MD Primary Care Provider [phone] Allergies No known active allergies Medications hydrochlorothiaz aleksandr (HYDRODIURIL) 25 MG TABS Take 25 mg by mouth daily. Active lorazepam (ATIVAN) 0.5 MG TABS Take 0.5 mg by mouth every 6 (six) hours as needed. Active hydrOXYzine HCl (ATARAX) 25 MG TABS Take 1 tablet by mouth every 6 (six) hours as needed for 12 doses. 12 tablet 0 02/16/2014 Active Active Problems No known active problems Social History Tobacco Use Types Packs/Day Years Used Date Smoking Tobacco: Never Alcohol Use Standard Drinks/Week Comments No 0 (1 standard drink = 0.6 oz pur e alcohol) Comments Unknown Sex and Gender Information Value Date Recorded Sex Assigned at Not on file Legal Sex Female 4:06 PM EDT Gender Identity Not on file Sexual Orientation Not on file Last Filed Vital Signs Vital Sign Reading Time Taken Comments Blood Pressure 129/73 02/16/2014 6:03 PM EDT Pulse 80 02/16/2014 6:03 PM EDT Temperature 36.4 C (97.6 F) 02/16/2014 6:03 PM EDT Respiratory Rate 18 02/16/2014 6:03 PM EDT Oxygen Saturation 100% 02/16/2014 6:03 PM EDT Inhaled Oxygen Concentration - - Weight 61.2 kg (135 lb) 02/16/2014 4:07 PM EDT Height 157.5 cm (5' 2 ) 02/16/2014 4:07 PM EDT Body Mass Index 24.69 02/16/2014 4:07 PM EDT Plan of Treatment Not on file Insurance [employer] MEDICARE SUPPLEMENT SECONDARY ONLY MEDICARE on file AN[employer]M MEDICARE SUPPLEMENT SECONDARY ONLY MEDICARE on file Care Teams Stitching Department Supervisor Relationship Specialty Start Date End Date González Freeman MD PCP - General Family Medicine 02/16/14
--- OUTSIDE RECORDS SUMMARY | 2025-05-15 16:22 | XMS_ITS | Patient Health Record ---
[facility] [address] [facility] [address] [facility] [address] [place] [id number] Care Team Providers Care Well Services Operator Name Role Phone Zhen Urbina Primary Care Provider Allergies No Known Allergies Results Component Value Reference Range Notes P-Vitamin D 25-Hydroxy Reviewed date:12/20/2024 08:34:26 AM Interpretation:29.6 Performing Lab: Notes/Report: Test performed by [facility] [address] [place], [place] [address] [place] , [address], [place] [address] Sohan Siegel MD, Snaker CLIA: [id number] Vitamin D 25-Hydroxy 29.6 30.0-100.0 ng/mL Interpretation of Vitamin D 25 OH: < 20 ng/mL - Deficiency 20 - 29 ng/mL - Insufficiency 30 - 100 ng/mL - Sufficiency > 100 ng/mL - Super-therapeutic- toxicity may occur above this level. Clinical correlation required. P-TSH reflex to FT4 Reviewed date:12/20/2024 08:34:26 AM Interpretation:Normal Performing Lab: Notes/Report: Test performed by [facility] [address] [place] [address] Saroj Lopez, [address], [place] [address] Sohan Siegel MD, Snaker CLIA: [id number] TSH reflex to FT4 0.49 0.43-5.25 mU/L P-Lipid Panel Reviewed date:12/20/2024 08:34:26 AM Interpretation:Normal Performing Lab: Notes/Report: Test performed by [facility] [address] [place], [place] [address] [place] , [address], [place] [address] Sohan Siegel MD, Snaker [facility]: [id number] Cholesterol 192 <200 mg/dL Triglycerides 117 <150 [...] ATPIII guidelines LDL/HDL Ratio 1.4 <3.3 Ratio ____ LDL Cholesterol Patient History ____ Test Date: 11/21/2023 LDL Results: 95 Units: mg/dL % Change: - ---- Test Date: 12/19/2024 LDL Results: 100 Units: mg/dL % Change: +5% ____ P-Comprehensive Metabolic Pa micki (CMP) Reviewed date:12/20/2024 08:34:26 AM Interpretation:alk phos 126 Performing Lab: Notes/Report: Test performed by [facility] [address] [place] [address] , [address], [place] [address] Sohan Siegel MD, Snaker CLIA: [id number] Sodium 145 135-145 mmol/L Potassium 4.5 3.5-5.3 [...] 0.3 <0.2-1.2 mg/dL A/G Ratio 1.5 1.1-2.5 P-Vitamin B12 Reviewed date:12/20/2024 08:34:26 AM Interpretation:399 Performing Lab: Notes/Report: Test performed by [facility] [address] [place] [address] , [address], [place] [address] Sohan Siegel MD, Snaker CLIA: [id number] Vitamin B12 031 300-9995 pg/mL CBC Venipuncture (in house) Reviewed date:12/20/2024 08:34:26 [...] - 38 platlet 220 100 - 400 Urinalysis - Inhouse Reviewed date:04/23/2025 06:01:09 PM Interpretation: Performing Lab: Notes/Report: Leuk Trace Nitrite Pos Urobili 3.2 Protein Neg pH 5.5 Blood 1+ Sp. Gr. 1.025 Ketone Trace Bili Neg Gluc Neg TEN-UTI panel Reviewed date:04/28/2025 01:30:40 PM Interpretation:Abnormal Performing Lab: Notes/Report: Abnormal Urinalysis - Inhouse Reviewed date:12/26/2024 03:45:22 PM Interpretation: Performing Lab: Notes/Report: Color/Clarity dark yellow/clear Leuk Neg Nitrite Pos Urobili 3.2 Protein Neg pH 5.5 Blood Trace-Intact Sp. Gr. >=1.030 Ketone Neg Bili Neg Gluc Neg TEN-UTI panel Reviewed date:01/02/2025 01:23:02 PM Interpretation:E. coli Performing Lab: Notes/Report: E. coli Reason For Referral No Information Medications Medication SIG (Take, Route, Frequency, Duration) Notes Start Date End Date Status Oxygen - per nasal cannula as directed prn Active Valerian Root 500 MG 1 capsule before bedtime as needed Orally Once a day at HS prn Active Metamucil Fiber 51.7 % as directed Orall y twice daily Active Loratadine 10 MG 1 tablet Orally Once a day; Duration: 90 days Active clonazePAM 0.5 MG 1/2 to 1 tablet Oral ly two times a day as needed; Duration: 30 days 05/13/2025 Active Pregabalin 225 MG 1 capsule Orally Two times a day; Duration: 30 days 04/29/2025 Active Montelukast Sodium 10 MG 1 tablet Orally once daily; Duration: 90 days Active Magnesium Oxide 250 MG 1 tab(s) orally o nce a day Active Atorvastatin Calcium 20 MG Take 1 tablet by mouth once daily; Duration: 90 Active MiraLax 17 GM bid Active OLANZapine 15 MG TAKE 1 TABLET BY ONCE DAILY AT BEDTIME; Duration: 90 Active Vitamin D (Cholecalciferol) 50 MCG (1999 UT) 1 capsule Orally Once a day Active Ascorbic Acid 1000 MG 1 tablet Orally On ce a day Active Sertraline HCl 100 MG 1 tablet Orally On ce a day; Duration: 90 days Active Omeprazole 40 MG TAKE 1 CAPSULE BY MOUTH IN THE MORNING 30 MINUTES BEFORE MORNING MEAL Orally Once a day; Duration: 90 days Active Meclizine HCl 12.5 MG 1 tab(s) orally 3 times a day as needed; Duration: 30 day(s) Active Nitrofurantoin Monohyd Macro 100 MG 1 capsule with food Orally every 12 hrs; Duration: 5 days 04/23/2025 Active traMADol HCl 50 MG 1 tablet as needed Orally four times a day as needed 07/11/2023 Active Immunizations Vaccine Route Administration Date Status Comme nts COVID 19 Moderna Unknown 12/03/2020 Administered COVID 19 Moderna Unknown 12/31/2020 Administered COVID 19 Moderna Unknown 10/09/2021 Administered Fluzone High Dose (65yr and older) Unknown 06/25/2020 Administered Fluzone High Dose (65yr and older) Unknown 08/12/2022 Administered Fluzone High Dose (65yr and older) IM Intramuscular 08/19/2023 Administered Fluzone High Dose (65yr and older) IM Intramuscular 07/30/2024 Administered PNEUMOVAX 23 VACCINE Unknown 12/20/2014 Administered Prevnar (PCV13) Unknown 04/11/2017 Administered Prevnar (PCV20) IM Intramuscular 08/19/2023 Administered xFluzone High Dose-private (65yr&older) Unknown 08/05/2016 Administered xFluzone High Dose-private (65yr&older) Unknown 08/19/2017 Administered xFluzone High Dose-private (65yr&older) Unknown 06/29/2018 Administered Problems Problem Type SNOMED Code ICD Code Onset Dates Problem Status W/U Status Risk Notes Problem Vitamin D deficiency (18090510) Vitamin D deficiency (E55.9) Active confirmed Problem Anxiety (13727976) Anxiety (F41.9) Active confi rmed Problem Environmental allerg y (672917588) Environmental allergies (Z91.048) Active confirmed Problem Somnolence (44561151) Somnolence (R40.0) Active confirmed Problem Primary insomnia (3614636) Primary insomnia (F51.01) Active confirmed Problem Pressure ulcer o f sacral region, stage 1 (L89.151) Active confirmed Problem Arthritis (5154259) Other specif ied arthritis, multiple sites (M13.89) Active confirmed Problem Recurrent falls (144589598) Repeated falls (R29.6) Active confirmed Problem Constipation (64128436) Constipation, unspecified constipation type (K59.00) Active confirmed Problem Anxiety state (304407217) Acute anxiety (F41.9) Active confirmed Problem Hyperlipidaemia (41928648) Hyperlipidemia, unspecified hyperlipidemia type (E78.5) Active confirmed Problem Recurrent falls (370925625) Frequent falls (R29.6) Active confirmed Problem Polyneuropathy (11323553) Polyneuropathy (G62.9) Active confirmed Problem Depressive disorder (disorder) (49896588) Depression, unspecified depression type (F32.9) Active confirmed Problem Pure hypercholesterolemia (695246488) Pure hypercholesterolemia (E78.00) Active confirmed Problem Pure hypercholesterolemia (605844188) Pure hypercholesterolemia, unspecified (E78.00) Active confirmed Problem Irritable bowel syndrome characterized by constipation (181716984) Irritable bowel syndrome with constipation (K58.1) Active confirmed Problem Oropharyngeal dysphagia (98875669) Oropharyngeal dysphagia (R13.12) Active confirmed Vital Signs Heart Rate 81 /min 12/19/2024 Blood pressure diastolic 68 mm Hg 12/19/2024 Height 62.50 in 12/19/2024 Blood pressure systolic 122 mm Hg 12/19/2024 Weight 153 lbs 12/19/2024 BMI 27.54 kg/m2 12/19/2024 Encounters Encounter Location Date Provider Diagnosis [facility] [address] [facility] [address] [place], [place] [id number] 07/30/2024 Zhen Salinas Environmental allerg ies Z91.048 ; Polyneuropathy G62.9 ; Depression, unspecified depression type F32.9 and Anxiety F41.9 [facility] [address] [facility] [address] [place], [place] [id number] 12/19/2024 Zhen Salinas Pure hypercholestero lemia E78.00 ; Vitamin D deficiency E55.9 ; Polyneuropathy G62.9 ; Depression, unspecified depression type F32.9 ; Anxiety F41.9 and Somnolence R40.0 [facility] [address] [facility] [address] [place], [place] [id number] 12/26/2024 Zhen Salinas UTI (lower urinary t ract infection) N39.0 [facility] [address] [facility] [address] [place], [place] [id number] 04/23/2025 Zhen Salinas Confusion R41.0 and Acute UTI N39.0 [facility] [address] [place], [place] [id number] 06/29/2024 Zhen Salinas Anxiety F41.9 [facility] [address] [place] [id number] 07/03/2024 Zhen Salinas [facility] [address] [place] [id number] 07/04/2024 Zhen Salinas Polyneuropathy G62.9 [facility] [address] [place] [id number] 12/20/2024 Zhen Salinas [facility] [address] [place] [id number] 12/24/2024 Zhen Salinas Anxiety F41.9 [facility] [address] [place] [id number] 03/04/2025 Zhen Salinas [facility] [address] [place] [id number] 03/05/2025 Zhen Salinas [facility] [address] [place] [id number] 04/23/2025 Zhen Salinas [facility] [address] [place] [id number] 04/24/2025 Zhen Salinas [facility] [address] [place] [id number] 04/29/2025 Zhen Salinas Polyneuropathy G62.9 [facility] [address] [place], [place] [id number] 05/13/2025 Zhen Salinas Anxiety F41.9 Assessments Encounter Date Diagnosis (ICD Code) Assessment Notes Treatment Notes Treatment Clinical Notes Section Notes 06/29/2024 Anxiety (ICD-10 - F41.9) 07/04/2024 Polyneuropathy (ICD- 10 - G62.9) 07/30/2024 Environmental allerg ies (ICD-10 - Z91.048) 07/30/2024 Polyneuropathy (ICD- 10 - G62.9) 12/19/2024 Vitamin D deficiency (ICD-10 - E55.9) 12/19/2024 Pure hypercholesterolemia (ICD-10 - E78.00) 12/24/2024 Anxiety (ICD-10 - F41.9) 12/26/2024 UTI (lower urinary t ract infection) (ICD-10 - N39.0) 04/23/2025 Confusion (ICD-10 - R41.0) 04/23/2025 Acute UTI (ICD-10 - N39.0) 04/29/2025 Polyneuropathy (ICD- 10 - G62.9) 05/13/2025 Anxiety (ICD-10 - F41.9) 12/19/2024 Polyneuropathy (ICD- 10 - G62.9) 07/30/2024 Depression, unspecif ied depression type (ICD-10 - F32.9) 07/30/2024 Anxiety (ICD-10 - F41.9) 12/19/2024 Depression, unspecif ied depression type (ICD-10 - F32.9) 12/19/2024 Anxiety (ICD-10 - F41.9) 12/19/2024 Somnolence (ICD-10 - R40.0) Unable to provide urine today, will collect sample at home and return it to office for evaluation Plan Of Treatment Next Appt Details Provider Name:Zhen browne, 06/19/2025 03:00:00 PM, [address], [address], [place], [place], [id number], Insurance Providers Payer Name Payer Address Payer Phone Subscriber Number Group Number Insured Name Patient Relationship to Insured Coverage Start Date Coverage End Date MEDICARE PART B [address] [address] Jimmyyamelbetito [place] [address] [id number] ELPIDIO ALBERTO Self - patient is the insured [employer] [facility] [address] [place] [address] [id number] [id number] ELPIDIO ALBERTO Self - patient is the insured Medical (General) History Medical History History ICD Code Irritable Bowel Syndrome Anxiety Allergy Arthritis Depression/Anxiety Migraines Vertigo with inner ear Vitamin D Deficiency Hyperlipidemia Surgical History Surgery Date(Month/Year) Cholecystectomy Tonsillectomy Stomach Exploritory Bilateral Breast Cyst Removal Hospitalization History Reason Date(Month/Year) Discharge Diagnoses (1) Enteritis: Status: Acute Code(s): K52.9 - Noninfective gastroenteritis and colitis, unspecified (2) Abdominal pain: Status: Acute Code(s): R10.9 - Unspecified abdominal pain Qualifiers: Abdominal location: periumbilical Qualified Code(s): R10.33 - Periumbilical pain (3) Headache: Status: Acute Code(s): R51.9 - Headache, unspecified Qualifiers: Headache chronicity pattern: acute headache Headache type: unspecified Intractability: not intractable (4) Hypoxemia: Status: Acute Code(s): R09.02 - Hypoxemia (5) Urinary tract infection: Status: Acute Code(s): N39.0 - Urinary tract infection,
--- OUTSIDE RECORDS SUMMARY | 2025-05-15 16:22 | XMS_ITS | Clinical Summary ---
Author Organization [facility] [place] Address [address] [facility] [address] [place] [address] Phone Care Team Providers Care Optics Technical Officer Name Role Phone Unavailable Primary Care Provider Unavailabl e Allergies Active Allergy Reactions Criticality Noted Date Comments Penicillins Rash 07/05/2019 Medications diphenhydrAMINE (BENADRYL) 25 mg Oral Capsule Take by mouth every 6 hours as needed for Itching. Active polyethylene glycol (GLYCOLAX, MIRALAX) 17 gram Oral Powder in Packet Take 17 g by mouth 2 times daily as needed. 60 Packet 2 8 Active docusate sodium (COLACE) 100 mg Oral Capsule Take 1 Cap by mouth 2 times daily. 60 Cap 3 8 Active loratadine (CLARITIN) 10 mg Oral TabletIndications:At opic neurodermatitis Take 1 Tab by mouth daily. 30 Tab 2 0 Active sertraline (ZOLOFT) 100 mg Oral TabletIndications:An xiety with depression,Severe episode of recurrent major depressive disorder, with psychotic features (HCC) Take 1 Tab by mouth daily. 90 Tab 1 0 Active pantoprazole (PROTONIX) 40 mg Oral Tablet, Delayed Release (E.C.)Indications:[place] stroesophageal reflux disease without esophagitis Take 1 Tab by mouth daily. 30 Tab 6 0 Active ergocalciferol (VITAMIN D) 1,250 mcg (50,000 unit) Oral CapsuleIndications:V itamin D deficiency Take 1 Cap by mouth once a week. 4 Cap 3 0 Active calcium carbonate-vitamin D3 (CALTRATE WITH VITAMIN D3) 600 mg(1,500mg) -800 unit Oral TabletIndications:Vi tamin D deficiency Take 1 Tab by mouth 2 times daily. 0 Active pregabalin (LYRICA) 50 mg Oral CapsuleIndications:D DD (degenerative disc disease), cervical Take 1 Cap by mouth 2 times daily. 60 Cap 2 0 Active atorvastatin (LIPITOR) 20 mg Oral TabletIndications:Hy perlipidemia with target LDL less than 100 Take 1 Tab by mouth daily. 30 Tab 6 0 Active OLANZapine (ZYPREXA) 10 mg Oral TabletIndications:An xiety with depression,Severe episode of recurrent major depressive disorder, with psychotic features (HCC) Take 1 Tab by mouth nightly. 30 Tab 6 0 Active montelukast (SINGULAIR) 10 mg Oral TabletIndications:Al lergic rhinitis, unspecified seasonality, unspecified trigger Take 1 tablet by mouth nightly 90 Tab 0 Active hydrOXYzine (ATARAX) 25 mg Oral TabletIndications:At opic neurodermatitis TAKE 1 TABLET BY MOUTH EVERY 6 HOURS NEEDED FOR ITCHING 120 Tab 3 1 Active LORazepam (ATIVAN) 0.5 mg Oral TabletIndications:An xiety with depression,Severe episode of recurrent major depressive disorder, with psychotic features (HCC) TAKE 1 TABLET BY MOUTH EVERY 8 HOURS NEEDED FOR ANXIETY 90 Tab 1 Active Active Problems Patient Care Coordination No te Formatting of this note migh t be different from the original. 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 Has spinal stenosis but neurosurgery and [facility] do not think it is playing a role in symptoms. \ Severe episode of recurrent major depressive disorder, with psychotic features 03/06/2018 Need for shingles vaccine 03/06/2018 Overview (03/06/2018): rx given 03/06/18 Cervical spinal stenosis 04/11/2017 Overview (03/08/2018): With myelopathy symptoms. Has seen [facility]. No surgical plan. [facility] did not think ataxia was secondary to spinal stenosis. Recommend decreasing poly pharmacy. MRI CERVICAL SPINE WO CONTRAST 02/24/2017 5:00 PM HISTORY: M48.00-Spinal stenosis, site [id number]. Compare: No previous imaging studies of the cervical spine are available Additional history: Bilateral upper extremity pain Spinal canal appears borderline to small from the level of C2 to that of C5. Cerebellar tonsils are within normal limits in position. C2-C3 level shows no disc herniation or compression of neural structures. Mild central stenosis. C3-C4 level broad-based discogenic disease combining with relatively small canal size to produce mild to moderate cord compression. Moderate central stenosis. Mild to moderate narrowing of left C4 neural foramen C4-C5 level mild broad-based discogenic disease with slight indentation of the spinal cord. C5-C6 level slight anterolisthesis of C5, felt to be degenerative. C6-C7 level mild broad-based discogenic disease which is most prominent in the right paracentral location with mild indentation of the subarachnoid space C7-T1 level shows no disc herniation or compression of neural structures IMPRESSION: Multilevel discogenic disease with foraminal narrowing as described. Combination of factors producing cord compression at the C3-C4 level. Spinal stenosis greater at C3-C4 than at C2-C3 Please note above level by level discussion Full code status 04/11/2017 Dermatitis 04/12/2016 Overview (04/11/2017): Has topicals. Sees derm. On multiple anxiety meds, and neuropathy meds. Waxing and waning course. Overall stable continue the same. 08/06/[address] Méndez in neurology. son is present to day and asks about Morgellons disease. We discussed web literature that he brought in. Not taking lyrica Taking seroquel, zoloft, amitriptyline, valium, neurontin. 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 Manageable on topicals and valium, seroquel, and zoloft. 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 documentation requested Alcohol screening 04/12/2016 Overview (04/11/2017): 04/11/17 Does not drink alcohol Screening for depression 04/12/2016 Overview (04/11/2017): 04/11/17 Depression Screening: In the past two weeks, how often have you felt down, depressed, or hopeless? None Have you felt little interest or pleasure in doing things? no Insomnia 03/31/2015 Overview (04/11/2017): Stable on current plan continue the same Essential hypertension 03/31/2015 Overview (11/02/2017): BP Readings from Last 3 Encounters: 11/02/17 114/70 08/19/17 120/70 04/11/17 124/72 Taking meds. Well controlled. Denies chest pain and SOB, swelling, dizziness or orthostatics. Stable continue the same. Dyslipidemia 03/31/2015 Overview (04/11/2017): Stable on lipitor continue the same. Anxiety Overview (03/06/2018): Stable on zoloft and seroquel and valium, continue the same. No adverse drug effects Legal issues: none Family or personal history of substance abuse: none Psych hx: none Risks and benefits of chronic narcotic / stimulant treatment discussed including anorexia, insomnia, constipation, dependence, tolerance, diversion, and addiction. Treatment plan: Lowest effective dose with respect to pain, performance, behavior, and disability. CSA discussed and reviewed. 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 10/15/2019 11/08/2019 Intussusception of small intestine 06/23/2018 07/02/2019 Migraine 12/20/2014 04/11/2017 Overview (04/12/2016): Stable no complaints Head ache 12/20/2014 04/11/2017 Meniere disease 04/19/2014 04/12/2016 Knee pain 04/12/2016 Joint pain 04/12/2016 Overview (02/12/2011): fingers, thumbs, knee Immunizations Immunization Administration Dates Next Due Influenza High Dose 07/24/2019, 8,08/19/2017,08/05 Pneumococcal Conjugate Vacci ne 13 Valent 04/11/2017 Pneumococcal Polysaccharide 23 Valent 12/20/2014 Quadrivalent Influenza High Dose 06/25/2020 Surgical History Surgery Date Site/Laterality Comments CHOLECYSTECTOMY TONSILLECTOMY BREAST SURGERY Tumor removed and cysts drained ABDOMINAL EXPLORATION SURGERY 06/24/2018 N/A diagnostic laparoscopy converted to open exploratory laparotomy; Surgeon: Phu Owen DO; Location: [facility] MAIN OR; Service: General DILATION AND CURETTAGE OF UTERUS 06/24/2018 dilation and curettage; Surgeon: Chris Hubbard MD; Location: [facility] MAIN OR; Service: Gynecology Oncology Medical History Medical History Date Comments Knee pain Joint pain fingers, thumbs, knee Anxiety Arthritis Depression Full code status 2013 Living will, counseling/discussion 2013 declines local intermodal truck driver vent support and local intermodal truck driver nutrition via feeding tube Headache Migraines Anemia purpura Family History Medical History Relation Name Comments Diabetes Father Cancer Mother Lung Relation Name Status Comments Father liver disease Maternal Grandfather Maternal Grandmother Mother Paternal Grandfather Paternal Grandmother Social History Tobacco Use Types Packs/Day Years Used Date Smoking Tobacco: Never Smokeless Tobacco: Never Tobacco Cessation:Counseling Given: No Alcohol Use Standard Drinks/Week Comments No 0 (1 standard drink = 0.6 oz pur e alcohol) PHQ-2 Answer Date Recorded PHQ-2 Total Score 0 06/25/2020 Sexually Active Control Partners Comments Yes Male Comments No Sex and Gender Information Value Date Recorded Sex Assigned at Not on file Legal Sex Female 5:14 PM EDT Gender Identity Not on file Sexual Orientation Not on file Obstetrics History Last Filed Vital Signs Vital Sign Reading Time Taken Comments Blood Pressure 116/62 06/25/2020 10:30 AM EDT Pulse 85 06/25/2020 10:30 AM EDT Temperature 36.2 C (97.2 F) 06/25/2020 10:30 AM EDT Respiratory Rate 12 06/25/2020 10:30 AM EDT Oxygen Saturation 97% 06/25/2020 10:30 AM EDT Inhaled Oxygen Concentration - - Weight 65.3 kg (144 lb) 06/25/2020 10:30 AM EDT Height 157.5 cm (5' 2 ) 06/25/2020 10:30 AM EDT Body Mass Index 26.34 06/25/2020 10:30 AM EDT Plan of Treatment Health Maintenance Due Date Last Done Comments Wellness Exam Medicare 1943 DTaP/TDaP/Td (1 - Tdap) 1959 Zoster (1 of 2) 1990 Bone Density Screening 2005 RSV or 60+ (1 - 1-dose 75+ series) 2015 COVID-19 Vaccine ( - 2023- season) 2024 Influenza Vaccine (#1) 2025 0, 07/24/2019, 06/29/2018, Additional history exists Pneumococcal Vaccine 50+ Completed 04/11/2017, 11/25 Hepatitis B Vaccine Aged Out No longe r eligible based on patient's age to complete this topic Meningococcal B Vaccine Aged Out No l onger eligible based on patient's age to complete this topic Goals Goal Patient Goal Type Associated Problems Recent Progress Patient-Stated? Author Blood Pressure < 140/90 Blood Pressure 116/62( 020 10:30 AM EDT) No Paulina Jimenes N, RMA Eat better, exercise, reach an ideal body weight General No Leida Ricks, LARRY Insurance [place]ICARE [place] PART A [place] B MEDICARE SUPPLEMENT [place]ARE [place] MED[place] SU[place] MEDICARE [place] B MEDICARE SU[place]LEMENT Advance Directives For more information, please contact: [phone] Documents on File Type Date Recorded Patient Incident Engineer Expl anation ADVANCE DIRECTIVE 05/09/2019 12:06 PM LW l iving will * DNR (Latest Code Status on File) Date Activated Date Inactivated Comments 06/24/2018 5:26 AM 06/25/2018 7:56 PM * Full Code Date Activated Date Inactivated Comments 06/23/2018 6:12 PM 06/24/2018 5:26 AM NO INTUBATION * Full Code Date Activated Date Inactivated Comments 06/23/2018 6:08 PM 06/23/2018 6:12 PM * DNR Date Activated Date Inactivated Comments 06/23/2018 12:39 PM 06/23/2018 6:08 PM
--- OUTSIDE RECORDS SUMMARY | 2025-05-15 16:22 | XMS_ITS | Clinical Summary ---
Author Organization [facility] Address [address] [place] [id number] Care Team Providers Care Peoplesoft Consultant Name Role Phone González Freeman MD Primary Care Provider [phone] Allergies No known active allergies Medications hydrochlorothiaz [...] 02/16/2014 4:07 PM EDT Plan of Treatment Health Maintenance Due Date Last Done Comments DTap,Tdap,and Td (1 - Tdap) 1951 Pneumococcal 50+ (1 of 1 - PCV) 1990 Shingrix (#1) 1990 DEXA Scan 2005 RSV Vaccine (60+ or ) (1 - 1-dose 75+ series) 2015 Influenza Vaccine (#1) 2025 HPV Aged Out No longer eligi ble based on patient's age to complete this topic Meningococcal conjugate saray nt 4 (MCV4) Aged Out No longer eligible b ased on patient's age to complete this topic RSV Immunization (<20 months) Aged Out No longer eligible based on patient's age to complete this topic Insurance [facility] MEDICARE SUPPLEMENT SECONDARY ONLY MEDICARE on file [facility] MEDICARE SUPPLEMENT SECONDARY ONLY MEDICARE on file Care Teams Peoplesoft Consultant Relationship Specialty Start Date End Date González Freeman MD PCP - General Family Medicine 02/16/14
--- OUTSIDE RECORDS SUMMARY | 2025-05-15 16:22 | XMS_ITS | Encounter Summary ---
Author Organization [facility] Address [address] [place] [id number] Care Team Providers Care Reinsurance Accountant Name Role Phone González Freeman MD Primary Care Provider [phone] Source Comments This information has been disclosed to you from confidential records protectfrom disclosure by state law. You shall make no further disclosure of thisinformation without the specific, written, and informed release of theindividual to whom it pertains, or as otherwise permitted by law. A generalauthorization for the release of medical or other information is not sufficientfor the purposes of the release of HIV test results or diagnoses. [id number] Health Encounter Details Date Type Department Care Team (Late st Contact Info) Description 07/12/2017 Orders Only [address] [id number] Rosalba Rivera MD Social History Tobacco Use Types Packs/Day Years Used Date Smoking Tobacco: Never Smokeless Tobacco: Never Alcohol Use Standard Drinks/Week Comments No 0 (1 standard drink = 0.6 oz pur e alcohol) Comments No Sex and Gender Information Value Date Recorded Sex Assigned at Not on file Legal Sex Female 4:48 PM EST Gender Identity Not on file Sexual Orientation Not on file documented as of this encounter Plan of Treatment Not on file documented as of this encounter Visit Diagnoses Not on filedocumented in this encounter Care Teams Reinsurance Accountant Relationship Specialty Start Date End Date González Freeman MD PCP - General Family Medicine 02/18/14 documented as of this encounter
--- OUTSIDE RECORDS SUMMARY | 2025-05-15 16:22 | XMS_ITS ---
Author Organization Unknown Vital Signs BpStanding BpSitting BpSupine Date Temperature HeartRate Weight Hei ght Spo2 Respiration Bmi HeadCircumference FieldCount TimeRecorded NeckCircumferen ce WaistCircumference Pulse 122/68 12/19 00:00 :00 98.0 81 153,0 5,3 27.5 4 6 05/04/2025 15:30:00 126/60 07/30 00:00 :00 67 156,12. 80 5,3 28.2 2 5 05/04/2025 14:00:00
--- OUTSIDE RECORDS SUMMARY | 2025-05-15 16:22 | XMS_ITS | Clinical Summary ---
Author Organization [facility] Address [address] [place] [id number] Care Team Providers Care Silver Cleaner Name Role Phone González Freeman MD Primary Care Provider [phone] Source Comments This information has been disclosed to you from confidential records protectedfrom disclosure by state law. You shall make no further disclosure of thisinformation without the specific, written, and informed release of theindividual to whom it pertains, or as otherwise permitted by law. A generalauthorization for the release of medical or other information is not sufficientfor the purposes of therelease of HIV test results or diagnoses. [id number] Allergies No known active allergies Medications hydrochlorothia zide (HYDRODIURIL) 25 MG tablet 4 Active LORazepam (ATIVAN) 0.5 MG tablet Take 0.5 mg by mouth daily as needed for Anxiety. Active hydrocortisone 2.5 % cream 4 Active sertraline (ZOLOFT) 50 MG tablet 4 Active ketoconazole (NIZORAL) 2 % cream Apply topically 2 times a day. To red scales on head, face and neck as directed. 60 g 0 4 Active camphor-menthol (SARNA ANTI-ITCH) lotion Use daily as a moisturizer as directed. 222 g 6 4 Active pimozide 1 mg TabIndications: Disturbance of skin sensation,Formi cation Start 0.5 mg (1/2 tab) x 5 days. Then increase to 1-mg daily (1 tab) if tolerated. Continue 1-mg daily until your follow up appointment. 45 tablet 0 4 Active diphenhydrAMINE (BENADRYL) 25 mg tablet Take 25 mg by mouth at bedtime as needed for Sleep. Active Active Problems Problem Noted Date Diagnosed Date Formication 02/18/2014 Disturbance of skin sensation 02/18/2014 Seborrheic dermatitis 02/18/2014 Infestation (skin) 01/31/2014 Assessment & Plan (01/31/2014 3:06 PM EDT): Has tried multiple potent medications against nonspecific pruritis as well as pediculocide - had appt with [facility] but postponed; no relief with derm evaluation - informed patient that I have no additional treatment to offer but suggested she see and ID MD for an opinion Vertigo Migraine Family History Medical History Relation Comments Cancer Mother lung Melanoma Neg Hx Relation Status Comments Mother Social History Tobacco Use Types Packs/Day Years [...] Sign Reading Time Taken Comments Blood Pressure 122/69 03/04/2014 10:08 AM EDT Pulse 94 03/04/2014 10:08 AM EDT Temperature 35.7 C (96.2 F) 03/04/2014 10:08 AM EDT Respiratory Rate 14 03/04/2014 10:08 AM EDT Oxygen Saturation 96% 12/20/2013 7:12 AM EST Inhaled Oxygen Concentration 96% 12/20/2013 7 :12 AM EST Weight 60.3 kg (133 lb) 03/04/2014 10:08 AM EDT Height 157.5 cm (5' 2 ) 03/04/2014 10:08 AM EDT Body Mass Index 24.33 03/04/2014 10:08 AM EDT Plan of Treatment Not on file Insurance Care Teams Silver Cleaner Relationship Specialty Start Date End Date González Freeman MD PCP - General Family Medicine 02/18/14
--- NOTE | 2025-05-15 16:24 | ED_ITS ---
<Statement entered by Michell Webster DO - 05/15/25 20:35> I was consulted by the ESTELLA, and we discussed the complexity of problems being addressed. I approve the treatment and management plan for this patient's care in the emergency department, thus performing a substantial portion of the medical decision making. Michell Webster DO Other differentials included intracranial pathology, electrolyte abnormalities, ACS/MN, arrhythmia, amongst others. At this time, patient lives with family members at home, they are trying to avoid placement and patient has had placement in the past. Given patient's unremarkable workup except for UTI, I felt that patient was appropriate for discharge. Patient was able to walk with a walker and family felt comfortable taking the patient home at this time. Patient has had physical therapy in the past and opted to stop this, I recommended that physical therapy see the patient again and that they follow-up with her primary care provider to schedule this in the home. At this time, patient was discharged home in stable condition. Discharge Plan Disposition Patient Disposition: Home, Self-Care Condition: Good Prescriptions Prescriptions: New cephalexin 500 mg tablet 500 mg PO TID 7 Days Qty: 21 0RF No Action pregabalin 200 mg capsule 200 mg PO BID Patient Comments: TAKE 1 CAPSULE BY MOUTH TWICE DAILY azithromycin [Zithromax TRI-ALTAGRACIA] 500 mg tablet 500 mg PO DAILY 3 Days Qty: 3 0RF cefdinir 300 mg capsule 300 mg PO Q12H 7 Days Qty: 14 0RF atorvastatin 20 mg Tablet 20 mg PO DAILY Vitamin C 1,000 mg Tablet Extended Release 1,000 mg PO BID sertraline 100 mg tablet 100 mg PO DAILY hydroxyzine HCl 25 mg Tablet 25 mg PO BID magnesium 250 mg Tablet 250 mg PO DAILY loratadine 10 mg Tablet 10 mg PO DAILY cholecalciferol (vitamin D3) [Vitamin D3] 50 mcg (2,000 unit) Tablet 50 mcg PO DAILY valerian root 500 mg Capsule 500 mg PO HSP PRN (Reason: Sleep) montelukast [Singulair] 10 mg Tablet 10 mg PO HS omeprazole 40 MG capsule,delayed release(DR/EC) 40 mg PO HS Rx Instructions: 1 tablet each morning olanzapine 15 mg tablet 15 mg PO HS Patient Comments: TAKE 1 TABLET BY MOUTH ONCE DAILY tramadol 50 mg Tablet 50 mg PO Q4HP PRN (Reason: Moderate To Severe Pain (4-10)) Qty: 60 0RF meclizine 25 mg Tablet 25 mg PO Q8HP PRN (Reason: dizziness) Qty: 30 0RF ondansetron HCl 4 mg tablet 4 mg PO Q8H PRN (Reason: nausea and vomiting) Qty: 30 0RF promethazine 25 mg tablet 25 mg PO Q6H PRN (Reason: nausea and vomiting) Qty: 30 0RF clonazepam 0.5 mg Tablet 0.5 mg PO BIDP PRN (Reason: Anxiety) Qty: 60 0RF polyethylene glycol 3350 [Miralax] 17 gram/dose powder 17 g PO DAILY Qty: 119 0RF Referrals Follow up/Referrals: Zhen Urbina MD [Primary Care Provider, Medical] - See instructions Activity Restrictions/Add. Instructions Additional Instructions/Restrictions: Increase fluids, water and not soda or tea. Can drink cranberry juice or cranberry extract. Wipe front to back Wear cotton underwear Start antibiotics immediately and make sure you take the full course although you may start to see improvement over the next 48 hours. Be sure to follow-up anytime for new or worsening symptoms Follow-up with primary care this week. Clinical Impressions Clinical Impression: Acute UTI Instructions Patient Instructions: DI for Urinary Tract Infection (UTI), DI for Muscle Weakness Print Language Print Language: Colombian Discharge ED Provider: Michell Webster Adult HPI General Chief complaint: Weakness Stated complaint: non responsive,weakness,not drinking Time Seen by Provider: 05/15/25 16:17 Mode of Arrival: Wheelchair Source of Information: Patient Description of Symptoms (Recalled from ER Triage Doc. by RN): Pt arrives with family for evaluation of increasing weakness and fatigue, diarrhea, decreased appetite, and cognitive decline. Per family patient was diagnosed with a uti 1 month ago. History of Present Illness HPI narrative: 84-year-old female presents for complaints of increased weakness, fatigue, decreased appetite and cognitive decline for the last month, Family states last month she was diagnosed with a UTI and seemed to get better for a day or 2 and then they have noticed symptoms. Son states she does have some diarrhea but he had given her some MiraLAX. Related Data Home Medications ?Medication ?Instructions ?Recorded ?Confirmed ascorbic acid (vitamin C) 1,000 mg 1,000 mg PO BID Sup plement 05/07/23 06/30/23 tablet,extended release (Vitamin C ER) atorvastatin 20 mg tablet 20 mg PO DAILY Cholesterol 0 05/07/23 06/30/23 cholecalciferol (vitamin D3) 50 50 mcg PO DAILY Supple ment 05/07/23 06/30/23 mcg (2,000 unit) tablet (Vitamin D3) hydroxyzine HCl 25 mg tablet 25 mg PO BID Itching 04/2306/30/23 loratadine 10 mg tablet 10 mg PO DAILY Allergy Sympt oms 05/07/23 06/30/23 magnesium 250 mg tablet 250 mg PO DAILY Supplement 0 05/07/23 06/30/23 montelukast 10 mg tablet 10 mg PO HS Allergy Symptoms 05/07/23 06/30/23 (Singulair) olanzapine 15 mg tablet 15 mg PO HS mood/sleep 05/0706/30/23 omeprazole 40 mg capsule,delayed 40 mg PO HS Acid Refl ux 05/07/23 06/30/23 release sertraline 100 mg tablet 100 mg PO DAILY Depression 0 05/07/23 06/30/23 valerian root 500 mg capsule 500 mg PO HSP PRN Sleep 0 05/07/23 06/30/23 pregabalin 200 mg capsule 200 mg PO BID nerve pain 06/1507/01/23 Previous Rx's ?Medication ?Instructions ?Recorded clonazepam 0.5 mg tablet 0.5 mg PO BIDP PRN Anxiety # 60 tabs 05/11/23 meclizine 25 mg tablet 25 mg PO Q8HP PRN dizziness #30 05/11/23 tabs ondansetron HCl 4 mg tablet 4 mg PO Q8H PRN nausea and 05/11/23 vomiting #30 tabs polyethylene glycol 3350 17 17 g PO DAILY #119 grams 0 05/11/23 gram/dose oral powder (Miralax) promethazine 25 mg tablet 25 mg PO Q6H PRN nausea and 05/11/23 vomiting #30 tabs tramadol 50 mg tablet 50 mg PO Q4HP PRN Moderate T o 05/11/23 Severe Pain (4-10) #60 tabs azithromycin 500 mg tablet 500 mg PO DAILY 3 days #3 t abs 07/02/23 (Zithromax TRI-ALTAGRACIA) cefdinir 300 mg capsule 300 mg PO Q12H 7 days #14 ca ps 09/09/23 cephalexin 500 mg tablet 500 mg PO TID 7 days #21 tab s 05/15/25 Allergies Allergy/AdvReac Type Severity Reaction Status Date / Time No Known Allergies Allergy Verified 05/06/23 21:44 [facility] Disclaimer: The information contained in this section may have been updated after the patient was seen, as this information can be updated by other users. 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) IBS (irritable bowel syndrome) GERD (gastroesophageal reflux disease) Polyneuropathy Vitamin D deficiency Hyperlipidemia Vertigo Migraine headache Depression Irritable bowel syndrome with constipation Allergic rhinitis Anxiety Surgical History , CORE STRIPPER) History of tonsillectomy History of esophagogastroduodenoscopy (EGD) History of cholecystectomy History of appendectomy Family History , CORE STRIPPER) Cancer Mother Social History Smoking Status: Never smoker alcohol intake: never current occupational status: retired Travel in the last 8 weeks?: None Have you lived/traveled outside US in past 30 days?: No Contact w/someone who lives/traveled outside US past 30 days?: No Exposure to someone with infectious disease in past 14 days?: No Do you have a fever (greater than 100.4 F or 38 C)?: No Have you tested positive for COVID-19?: No Exposed to someone with COVID-19 in past 14 days?: No Do you have a sore throat?: No Do you have a cough?: No Do you have any weakness?: No Do you have any diarrhea?: No Are you experiencing any unusual bleeding?: No Do you have any muscle aches/pain?: No Do you have any abdominal pain?: No Are you experiencing loss of taste or smell?: No Other Medical History Have you received the Flu Vaccine for this season: No Have you received the Pneumonia Vaccine: No ROS Obtained: Yes All systems reviewed & no additional complaints except as documented Constitutional Constitutional: Reports system reviewed and no additional complaints, except as documented, Reports as per HPI, Reports fatigue, Denies fever(s), Reports poor appetite and Reports weakness Gastrointestinal Gastrointestingal: Reports system reviewed and no additional complaints, except as documented, as per HPI and diarrhea Neurologic Neurologic: Reports system reviewed and no additional complaints, except as documented, Reports as per HPI and Reports weakness Endocrine Endocrine: Reports system reviewed and no additional complaints, except as documented, Reports as per HPI and Reports fatigue Physical Exam General General appearance: alert and in no apparent distress Head Head exam: atraumatic Eye Eye exam: Present normal appearance and PERRL ENT ENT exam: Present normal exam Respiratory Respiratory exam: Present normal lung sounds bilaterally Cardiovascular Cardiovascular exam: Present regular rate and normal rhythm Abdominal Exam Abdominal exam: Present soft; Absent distention or tenderness Neurological Exam Neurological exam: Present alert and oriented X3 Skin Skin exam: Present warm and intact Medical Decision Making Medical Records Medical records reviewed: Yes I reviewed the patient's medical records. Screening: Per USPSTF and CDC recommendations, given the prevalence of disease in our region, it is our hospital?s policy to screen for HIV and viral Hepatitis for all patients aged 18 and over and those with ongoing risk factors. [place] Inquiry Pt receiving controlled substance: No Vital Signs: 05/15/25 16:13 05/15/25 16:16 05/15/25 16:30 Temperature 97.7 F Temperature Source Oral Pulse Rate 59 L 62 Pulse Rate [Right] 58 L Respiratory Rate 16 14 Blood Pressure 147/61 H 147/67 H Blood Pressure [Right Arm] 147/61 H Blood Pressure Mean 115 95 Blood Pressure Mean [Right Arm] 89 Blood Pressure Source [Right Arm] Automatic Cuff Blood Pressure Position [Right Arm] Sitting 02 Sat by Pulse Oximetry 94 L 94 L 94 L Oxygen Delivery Method Room Air 05/15/25 17:00 Temperature Temperature Source Pulse Rate 53 L Pulse Rate [Right] Respiratory Rate 17 Blood Pressure 137/57 L Blood Pressure [Right Arm] Blood Pressure Mean 83 Blood Pressure Mean [Right Arm] Blood Pressure Source [Right Arm] Blood Pressure Position [Right Arm] 02 Sat by Pulse Oximetry 93 L Oxygen Delivery Method Lab Data Lab results reviewed: Yes I reviewed the patient's lab results. Lab Results 05/15/25 16:20: WBC 7.2, RBC 4.93, Hgb 15.0, Hct 45.2, MCV 91.7, MCH 30.4, MCHC 33.2, RDW 13.4, Plt Count 262, MPV 10.7 H, Neut % (Auto) 57.4, Lymph % (Auto) 34.1, Ness % (Auto) 6.5, Eos % (Auto) 1.5, Baso % (Auto) 0.4, Neut # (Auto) 4.2, Lymph # (Auto) 2.5, Ness # (Auto) 0.5, Eos # (Auto) 0.1, Baso # (Auto) 0.0, Sodium 139, Potassium 4.0, Chloride 103, Carbon Dioxide 32 H, Anion Gap 8.0, BUN 19 H, Creatinine 0.70, Estimated Creat Clear 51, Estimated GFR 80, Est GFR ( Amer) 96, Glucose 99, Calcium 9.4, Phosphorus 3.5, Magnesium 2.0, Total Bilirubin 0.9, AST 29, ALT 16, Alkaline Phosphatase 130 H, Troponin I < 0.01, Total Protein 7.8, Albumin 4.3, Globulin 3.5 H, Albumin/Globulin Ratio 1.2, TSH 0.48 05/15/25 16:46: VBG pH 7.31, VBG pCO2 55.9 H, VBG pO2 32.7, VBG HCO3 27.3, VBG Total CO2 29.0 H, VBG O2 Saturation 58.6, VBG Base Excess -0.3, VBG Lactic Acid 1.8 05/15/25 16:50: Urine Color Yellow, Urine Appearance Clear, Urine pH 5.5, Ur Specific Ozone >= 1.030, Urine Protein Negative, Urine Glucose (UA) Negative, Urine Ketones Negative, Urine Blood Trace-i, Urine Nitrate Positive A, Urine Bilirubin Negative, Urine Urobilinogen 0.2, Ur Leukocyte Esterase Negative, Urine RBC Occasional, Urine WBC 3-5, Ur Squamous Epith Cells 5-10, Urine Bacteria 4+ 05/15/25 16:20 05/15/25 16:20 Orders (Tests/Meds): ED MEDICATIONS Generic Name Dose Route Start Last Admin Trade Name Freq PRN Reason Stop Dose Admin Ceftriaxone Sodium 1 gm/ 50 mls @ 100 mls/hr 05/15/25 18:30 Sodium Chloride IV 05/25/25 18:29 Q24H PAL[place]O Discontinued Medications Generic Name Dose Route Start Last Admin Trade Name Freq PRN Reason Stop Dose Admin Acetaminophen 500 mg 05/15/25 17:34 05/15/25 17:42 Acetaminophen 500mg Tab PO 05/15/25 17:35 500 mg ONCE ONE Administration ORDERS Category Date Time Status CT head/brain wo con Stat Cat Scan 05/15/25 17:07 Completed Chest XR 2 view (NOT portable) [XR chest 2V] Stat Exams 05/15/25 16:19 Completed CBC w/Auto Diff [Complete Blood Count Auto Diff] Stat Lab 05/15/25 16:20 Completed CMP [Comprehensive Metabolic Panel] Stat Lab 05/15/25 16:20 Completed Free T4 (Free Thyroxine) Stat Lab 05/15/25 16:20 Received Lactate Venous Stat Lab 05/15/25 18:00 Ordered MAG [Magnesium] Stat Lab 05/15/25 16:20 Completed Phosphorous Stat Lab 05/15/25 16:20 Completed Thyroid Stimulating Hormone Stat Lab 05/15/25 16:20 Completed Trop I [Troponin I] Stat Lab 05/15/25 16:20 Completed Troponin I Q3H Lab 05/15/25 19:30 Ordered Troponin I Q3H Lab 05/15/25 22:30 Ordered Urinalysis and Microscopic Stat Lab 05/15/25 16:50 Completed Blood Culture Stat Micro 05/15/25 16:22 Received Urine Culture Stat Micro 05/15/25 16:50 Received Venous Blood Gas Stat RT 05/15/25 16:46 Completed Medical Decision Narrative: In summary patient is a 84-year-old female who presents to the emergency department for evaluation of weakness, fatigue, decreased appetite, cognitive decline since having a UTI a month ago. Patient is hemodynamically stable upon arrival, afebrile. Differential diagnosis includes UTI, metabolic syndrome, depression. Initial workup will be conducted with labs, CT head, urine, EKG,. Initial inventions include IV Rocephin, EKG, CT. Initial workup reviewed by ms labs are unremarkable, CT unremarkable, urine shows positive for nitrates. Upon repeat evaluation patient resting comfortably in bed family at bedside. Given this patient appropriate discharge at this time will discharge home with oral antibiotics and to follow-up with primary care. Critical Care Critical Care Time Critical Care Time: No
--- NOTE | 2025-05-15 16:30 | PC.NURSE ---
fsbs 85. done by candis martinez
[2025-05-15 16:50] LABS: Albumin Level 4.3 g/dl (3.5-5.0); Chloride 103 mmol/L (98-107); Potassium 4.0 mmoL/L (3.5-5.1); Sodium 139 mmol/L (136-145)
[2025-05-15 16:51] LABS: Microscopic, Urine URINE MICROSCOPIC (MICROSCOPIC)
[2025-05-15 16:52] LABS: Blood Urea Nitrogen 19 mg/dl (7-17); Creatinine Clearance Estimated 51 mL/min (50-200); Creatinine,Serum 0.70 mg/dl (0.52-1.04); Estimated Glomerular Filt Rate 80 ml/min (>60); GFR (African American) 96 ML/MIN (>60)
[2025-05-15 16:53] LABS: Alanine Aminotransferase 16 U/L (12-78); Albumin/Globulin Ratio 1.2 (1.1-1.8); Alkaline Phosphatase 130 U/L (38-126); Anion Gap 8.0 mEq/L (5-15); Aspartate Amino Transferase 29 U/L (14-36); Bilirubin,Total 0.9 mg/dl (0.2-1.3); Calcium 9.4 mg/dl (8.4-10.2); Carbon Dioxide 32 mmol/L (22.0-30.0); Globulin 3.5 g/dL (1.3-3.2); Glucose 99 mg/dl (74-100); Total Protein,Serum 7.8 g/dl (6.3-8.2)
[2025-05-15 16:54] LABS: Hematocrit 45.2 % (37.0-47.0); Hemoglobin 15.0 g/dL (12.2-16.2); Immature Granulocytes % 0.1 %; Mean Corpuscular HGB Conc 33.2 g/dL (31.8-35.4); Mean Corpuscular Hemoglobin 30.4 pg (27.0-31.2); Mean Corpuscular Volume 91.7 fl (81-99); Nucleated Red Blood Cells % 0 %; Platelet Count 262 K/mm3 (142-424); Red Blood Count 4.93 M/mm3 (4.20-5.40); Red Cell Distribution Width-SD 45.1 fL; White Blood Count 7.2 K/mm3 (4.8-10.8)
[2025-05-15 16:57] LABS: Bilirubin,Urine Negative (Negative); Color,Urine YELLOW (Yellow); Glucose,Urine (UA) Negative (Negative); Ketones,Urine Negative (Negative); Leukocyte Esterase,Urine Negative (Negative); PH,Urine 5.5 (5.0-8.5); Protein,Urine Negative (Negative); Specific Gravity, Urine >= 1.030 (1.005-1.030); Urobilinogen,Urine 0.2 EU/dl (0.2)
--- NOTE | 2025-05-15 17:00 | PC.NURSE ---
spoke with RT about VBG in the lab
--- NOTE | 2025-05-15 17:07 | CT_ITS ---
PROCEDURE INFORMATION: Exam: CT Head Without Contrast Exam date and time: 05/15/2025 5:24 PM Age: 84 years old Clinical indication: Other: Weakness TECHNIQUE: Imaging protocol: Computed tomography of the head without contrast. Radiation optimization: All CT scans at this facility use at least one of these dose optimization techniques: automated exposure control; mA and/or kV adjustment per patient size (includes targeted exams where dose is matched to clinical indication); or iterative reconstruction. COMPARISON: CT HEAD/BRAIN WO CON 06/30/2023 1:36 PM FINDINGS: Brain: Moderate generalized cerebral/cerebellar atrophy. Moderate bilateral white matter hypodensities which are nonspecific but most commonly associated with chronic microvascular ischemia in this age group. The IACs are grossly normal. No extra-axial fluid collections. No evidence of acute intracranial hemorrhage. Cerebral/cerebellar [place]-white matter differentiation is well maintained. No intracranial mass lesions. No midline shift or herniation. Cerebral ventricles: Moderate compensatory ventriculomegaly secondary to central atrophy. Pituitary gland and sella: The sella is grossly normal. Paranasal sinuses: Visualized paranasal sinuses are clear. Mastoid air cells: Visualized mastoid air cells are clear. Orbital cavities: No acute intraorbital findings. Bones: No acute osseous findings. 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 Soft tissues: No acute soft tissue findings. Vasculature: Mild-moderate calcific atherosclerosis. No asymmetric vascular hyperdensities suggestive of thrombosis are identified. IMPRESSION: 1. No acute intracranial process. No intracranial hemorrhage or mass effect. 2. Atrophy with nonspecific white matter hypodensities most commonly representing chronic microvascular changes in this age group. 3. Mild-moderate calcific atherosclerosis.
[2025-05-15 17:09] LABS: VBG PH 7.31 mmol/L (7.31-7.41)
[2025-05-15 17:10] LABS: Lactate Venous 1.8 mmol/L (0.4-2.0); VBG HCO3 27.3 mmol/L (23-30); VBG PCO2 55.9 mmol/L (35-51); VBG PO2 32.7 mmol/L (28-40)
[2025-05-15 17:12] LABS: Troponin I < 0.01 ng/ml (0.00-0.034)
[2025-05-15 17:39] LABS: Magnesium 2.0 mg/dl (1.6-2.3); Phosphorous 3.5 mg/dl (2.5-4.5)
[2025-05-15] MEDS: ACETAMINOPHEN 500MG TAB 500 MG PO (17:42)
[2025-05-15 17:54] LABS: Bacteria,Urine 4+ /lpf; RBC,Urine Occasional #/hpf (0-3)
[2025-05-15 18:11] LABS: Thyroid Stimulating Hormone 0.48 uIU/mL (0.465-4.68)
[2025-05-15 18:48] LABS: Free T4 (Free Thyroxine) 1.56 ng/dl (0.78-2.19)
== END 2025-05-15 19:21 | disposition home or self-care (01) ==
PROVIDERS: Nurse Practitioner Family; Emergency Provider Student in an Organized Health Care Education/Training Program; PCP Family Medicine
DX: N39.0 Urinary tract infection, site not specified (principal); R53.1 Weakness; E78.5 Hyperlipidemia, unspecified; K58.9 Irritable bowel syndrome, unspecified; K21.9 Gastro-esophageal reflux disease without esophagitis
CPT/HCPCS: 70450; 71046; 80053; 81001; 82803; 83735; 84100; 84439; 84443; 84484; 85025; 87040; 87086; 93005; 96374; 99285; J0696